=== PATIENT | female | born 1965 | race Caucasian/White ===

== ENCOUNTER 2017-01-11 08:03 | Emergency (ER) | payer OTHER ==
[2017-01-11] MEDS ORDERED: Ondansetron INJ* 2 MG/ML VIAL IV ONE (08:55)
[2017-01-11] MEDS ORDERED: Morphine INJ* 4 MG/ML 1 ML CARPUJECT IV ONE (08:55)
[2017-01-11] MEDS ORDERED: NS 0.9% 1000 ML* 2,000 ML IV ONE (08:55)
[2017-01-11] MEDS ORDERED: Ketorolac INJ* 30 MG/ML 1 ML VIAL IV PUSH ONE (08:59)
[2017-01-11 09:12] LABS: Hematocrit 42 % (35-47); Hemoglobin 14.3 g/dl (12.0-16.0); Mean Corpuscular HGB Conc 34 g/dl (31-36); Mean Corpuscular Hemoglobin 32 pg (27-31); Mean Corpuscular Volume 95 fL (80-97); Mean Platelet Volume 6 um3 (7.4-10.4); Red Blood Count 4.41 10^6/ul (4.0-5.4); Red Cell Distribution Width 14 % (10.5-15); White Blood Count 5.4 10^3/ul (3.5-10.8)
[2017-01-11 09:25] LABS: Albumin 4.1 g/dL (3.2-5.2); BUN/Creatinine Ratio 15.9 (8-20); C Reactive Protein 2.3 mg/L (< 5.00); Calcium 9.3 mg/dL (8.6-10.3); EGFR African American 115.4 (>60); EGFR Non-African American 89.7 (>60); Globulin 3.1 g/dL (2-4); Potassium 4.1 mmol/L (3.5-5.0); Total Bilirubin 0.4 mg/dL (0.2-1.0); Total Protein 7.2 g/dL (6.4-8.9); Troponin I 0.01 ng/mL (<0.04)
--- NOTE | 2017-01-11 10:08 | RAD ---
HISTORY: Right] side chest pain, shortness of breath COMPARISONS: February 01, 2015 VIEWS: 8: Frontal dual-energy and lateral views of the chest, frontal and oblique views of the right hemithorax. FINDINGS: CARDIOMEDIASTINAL SILHOUETTE: The cardiomediastinal silhouette is normal. GIULIANA: The giuliana are normal. PLEURA: The costophrenic angles are sharp. No pleural abnormalities are noted. There is no pneumothorax. LUNG PARENCHYMA: The lungs are clear. ABDOMEN: The upper abdomen is clear. There is no subphrenic gas. BONES AND SOFT TISSUES: No bone or soft tissue abnormalities are noted. There is no displaced rib fracture. OTHER: None. IMPRESSION: NO ACTIVE CARDIOPULMONARY DISEASE. NO DISPLACED RIB FRACTURE OR PNEUMOTHORAX.
--- NOTE | 2017-01-11 10:13 | RAD ---
INDICATION: Facial weakness. COMPARISON: There are no prior studies available for comparison. TECHNIQUE: Contiguous axial sections of the brain were obtained from the skull base to the vertex without contrast. FINDINGS: The ventricles, cisterns and sulci are within normal limits. There are small areas of decreased density in the subcortical and periventricular white matter suggestive of mild chronic small vessel ischemic changes. There is no evidence for hemorrhage. No significant focal osseous abnormality is seen. The visualized portion of the paranasal sinuses and mastoid air cells appear clear. Note on the lowest image there is a 8 mm nodule seen within the right parotid gland. IMPRESSION: 1. NO EVIDENCE FOR GROSS ACUTE INFARCT, MASS EFFECT OR HEMORRHAGE. 2. FINDINGS SUGGESTIVE OF MILD CHRONIC SMALL VESSEL ISCHEMIC CHANGES. 3. 8 MM NODULE WITHIN THE RIGHT PAROTID GLAND RECOMMEND A CT OR MRI OF THE NECK WITHOUT AND WITH CONTRAST FOR FURTHER EVALUATION.
[2017-01-11 10:20] LABS: Urine Bacteria Absent (Absent); Urine Bilirubin Negative (Negative); Urine Glucose Negative (Negative); Urine Nitrite Negative (Negative)
[2017-01-11 10:34] LABS: Erythrocyte Sed Rate 22 mm/Hr (0-30)
[2017-01-11] MEDS ORDERED: oxyCODONE/Acetamin 5/325 MG* TAB PO ONE (11:58)
[2017-01-11 12:25] VITALS: BP 166/86
--- NOTE | 2017-01-11 16:22 | ED ---
Yfn [place] Adam, scribed for Delfino Membreno MD on 01/11/17 at 0852 . Complex/Multi-Sys Presentation - HPI Summary HPI Summary: Pt is a 51 year old female presenting with right-sided rib pain and right facial droop. She has been having pain in her right ribs since she saw a chiropractor 9 days ago but the pain grew worse last night. Any movement and contact aggravates the pain. This morning the pt was at work when a regular customer noticed that her face appeared asymmetrical at approximately 07:00. She came to the ED because of concerns about possible CVA. She also c/o tingling in her right fingers earlier that is no longer present. She has also been experiencing intermittent palpitations when she is in bed. She denies MORGAN, visual loss, slurred speech, and weakness. PMHx of GERD and back problems. She is on medication for GERD and insomnia. Positive tobacco and alcohol use. No recent tick exposures. FMHx of HTN and LA. - History Of Current Complaint Chief Complaint: EDGeneral Time Seen by Provider: 01/11/17 08:39 Hx Obtained From: Patient Onset/Duration: Gradual Onset, Lasting Hours, Still Present Timing: Constant Severity Currently: Moderate Severity Initially: Moderate Location: Pain At: - Right ribs Aggravating Factor(s): Movement, inspiration, palpation Alleviating Factor(s): Nothing Associated Signs And Symptoms: Positive: Palpitations, Other - Right side facial droop, tingling in fingers of right hand. Negative: Weakness, Headache - Allergies/Home Medications Allergies/Adverse Reactions: Allergies Allergy/AdvReac Type Severity Reaction Status Date / Time Azithromycin [From Zithromax] AdvReac Intermediate stomach Verified 04/02/16 14: 09 cramps, diarhrea PMH/Surg Hx/FS Hx/Imm Hx Endocrine/Hematology History: Denies: Hx Diabetes, Hx Thyroid Disease Cardiovascular History: Reports: Hx Hypertension Denies: Hx Hypercholesterolemia, Hx Peripheral Vascular Disease, Other Cardiovascular Problems/Disorders Respiratory History: Reports: Hx Asthma - not formally dx w/ asthma, but uses inhaler, Hx Seasonal Allergies Denies: Hx Chronic Obstructive Pulmonary Disease (COPD) GI History: Reports: Hx Gastroesophageal Reflux Disease Denies: Hx Ulcer, Other GI Disorders Musculoskeletal History: Reports: Other Musculoskeletal History - BACK SPASMS FROM WORK INJURY Denies: Hx Arthritis, Hx Osteoporosis Sensory History: Denies: Hx Cataracts, Hx Contacts or Glasses, Hx Glaucoma, Hx Hearing Aid Opthamlomology History: Denies: Hx Cataracts, Hx Contacts or Glasses, Hx Glaucoma Neurological History: Denies: Hx Headaches, Hx Seizures, Hx Transient Ischemic Attacks (TIA) Psychiatric History: Reports: Other Psychiatric Issues/Disorders - Insomnia Denies: Hx Anxiety, Hx Depression - Surgical History Surgery Procedure, Year, and Place: c-sections x2, , gall bladder removed, , [facility] [place] [facility] [place] Hx Anesthesia Reactions: No Infectious Disease History: No Infectious Disease History: Denies: Hx Clostridium Difficile, Hx Hepatitis, Hx Human Immunodeficiency Virus (HIV), Hx of Known/Suspected MRSA, Hx Shingles, Hx Tuberculosis, History Other Infectious Disease, Traveled Outside the [place] in Last 30 Days - Family History Known Family History: Positive: Cardiac Disease - [place], Hypertension, Other - M - lung cancer metastasized to bone. F - natural causes. - Social History Occupation: Employed Full-time Lives: With Family - Alcohol Use: Weekly Alcohol Amount: 1-2 PER WEEK Hx Substance Use: No Substance Use Type: Reports: None Hx Tobacco Use: Yes - is in the process of quitting Smoking Status (MU): Light Every Day Tobacco Smoker Type: Cigarettes Amount Used/How Often: varies from day to day Length of Time of Smoking/Using Tobacco: approx 35 + yrs Have You Smoked in the Last Year: Yes Review of Systems Negative: Blurred Vision Positive: Palpitations Positive: Myalgia - Pain in right ribs Neurological: Other - Right side facial droop Positive: Numbness - Tingling in fingers of right hand. Negative: Headache, Weakness, Slurred Speech All Other Systems Reviewed And Are Negative: Yes Physical Exam - Summary Physical Exam Summary: The patient is well-nourished in no acute distress and in no acute pain. The skin is warm and dry and skin color reflects adequate perfusion. HEENT: The head is normocephalic and atraumatic. The pupils are equal and reactive. The conjunctivae are clear and without drainage. Nares are patent and without drainage. Mouth reveals moist mucous membranes and the throat is without erythema and exudate. The external ears are intact. Neck is supple with full range of motion and non-tender. There are no carotid bruits. There is no neck vein distension. Respiratory: Diminished breath sounds on the right. No crepitus, no subcutaneous air. Cardiovascular: Heart is regular rate and rhythm. There is no murmur or rub auscultated. There is no peripheral edema and pulses are symmetrical and equal. Abdomen: The abdomen is soft and non-tender. There are normal bowel sounds heard in all four quadrants and there is no organomegaly palpated. Musculoskeletal: Reproducible pain in lateral ribs on the right, more in the 4th rib through the 8th rib. Neurological: Right facial droop, some ptosis of the right eye. Nasolabial fold flattened. Patient is alert and oriented to person, place and time. The patient has symmetrical motor strength in all four extremities. Cranial nerves are grossly intact. Deep tendon reflexes are symmetrical and equal in all four extremities. No pronator drift. Negative finger to nose. Negative heel to watson. Negative Babinski. Visual acuities intact. Speech normal. Psychiatric: The patient has an appropriate affect and does not exhibit any anxiety or depression. Triage Information Reviewed: Yes Vital Signs On Initial Exam: Initial Vitals Temp Pulse Resp BP Pulse Ox 97.9 F 60 18 165/94 96 01/11/17 08:38 01/11/17 08:38 01/11/17 08:38 01/11/17 08:38 01/11/17 08:38 Vital Signs Reviewed: Yes Diagnostics - Vital Signs Vital Signs Temp Pulse Resp BP Pulse Ox 01/11/17 08:38 97.9 F 60 18 165/94 96 - Laboratory Lab Results: Lab Results 01/11/17 Range/Units 08:30 POC Glucose (mg/dL) 91 (74-106) mg/dL Result Diagrams: 01/11/17 08:31 01/11/17 08:31 Lab Statement: Any lab studies that have been ordered have been reviewed, and results considered in the medical decision making process. - Radiology RIBS Radiology Interpretation Completed By: Radiologist - IMPRESSION: NO ACTIVE CARDIOPULMONARY DISEASE. NO DISPLACED RIB FRACTURE OR PNEUMOTHORAX. CXR Radiology Interpretation Completed By: Radiologist - IMPRESSION: NO ACTIVE CARDIOPULMONARY DISEASE. NO DISPLACED RIB FRACTURE OR PNEUMOTHORAX. - CT BRAIN CT Interpretation Completed By: Radiologist - IMPRESSION: 1. NO EVIDENCE FOR GROSS ACUTE INFARCT, MASS EFFECT OR HEMORRHAGE. 2. FINDINGS SUGGESTIVE OF MILD CHRONIC SMALL VESSEL ISCHEMIC CHANGES. 3. 8 MM NODULE WITHIN THE RIGHT PAROTID GLAND RECOMMEND A CT OR MRI OF THE NECK WITHOUT AND WITH CONTRAST FOR FURTHER EVALUATION. - EKG 08:16 Cardiac Rate: NL - 62 BPM EKG Rhythm: Sinus Rhythm - Normal EKG Interpretation: Poor R wave progression - Additional Comments Diagnostic Additional Comments: Troponin I - 0.01 Complex Multi-Symp Course/Dx Course Of Treatment: 11:50 - Patient will be discharged with steroids and Percocet. - Diagnoses Differential Diagnoses/HQI/PQRI: Other - cva, vera's palsy, pneumothorax, rib fracture, intercostal myalgia Provider Diagnoses: Vera's palsy, Rib pain, CHEST WALL PAIN - Physician Notifications Discussed Care Of Patient With: Dr. Plascencia (Radiology). He made note of an incidental finding in the parotid gland but did not feel that this was causing the patient's symptoms. Discharge - Discharge Plan Condition: Stable Disposition: HOME Prescriptions: oxyCODONE/Acetamin 5/325 MG* [Percocet 5/325 TAB*] 1 tab PO Q6H PRN #20 tab MDD 4 PRN Reason: pain predniSONE TAB* [Deltasone TAB*] 60 mg PO DAILY #21 tab Patient Education Materials: Vera Palsy (ED), Chest Wall Pain (ED) Forms: *Work Release Referrals: Sandip Harvey MD [Primary Care Provider] - Additional Instructions: Follow up with Dr. Harvey. The documentation as recorded by the Yfn hill Adam accurately reflects the service I personally performed and the decisions made by , Delfino Membreno MD.
== END 2017-01-11 12:25 | disposition home or self-care (01) ==
LOC: ED 08:03
DX: R07.81 Pleurodynia (principal); G51.0 Bell's palsy; R07.89 Other chest pain; I10 Essential (primary) hypertension; J45.909 Unspecified asthma, uncomplicated; I73.9 Peripheral vascular disease, unspecified; G47.00 Insomnia, unspecified; F17.210 Nicotine dependence, cigarettes, uncomplicated
CPT/HCPCS: 36415; 70450; 71020; 80053; 81003; 81015; 83605; 84484; 85025; 85610; 85652; 86140; 86618; 93005; 96360; 96374; 96375; 99284; A9270-GY; J1885; J2270; J2405

== ENCOUNTER 2017-12-19 08:57 | Emergency (ER) | payer OTHER ==
[2017-12-19 09:16] VITALS: BP 153/88
--- NOTE | 2017-12-19 10:17 | UC ---
Shoulder Pain HPI - HPI Summary HPI Summary: Pt presents with anterior chest wall pain s/p fall x2 yesterday. She tells me that she slipped on the ice twice yesterday. One time landing on her buttocks and the other time bracing her fall backwards with her hands behind her back - felt a "pop" in her chest. She took tylenol and ibuprofen, but says this is not helping. Woke up this morning with continued chest wall pain. Denies numbness, tingling, palpitations, SOB, difficulty breathing, or hitting her head. - History of Current Complaint Chief Complaint: UCTrauma Stated Complaint: FELL CHEST INJURY Time Seen by Provider: 12/19/17 10:04 Hx Obtained From: Patient Onset/Duration: Sudden Onset Timing: Constant Severity Initially: Moderate Severity Currently: Moderate Pain Intensity: 7 Pain Scale Used: 0-10 Numeric Character: Sharp, Aching Aggravating Factor(s): Movement Alleviating Factor(s): Rest - Allergies/Home Medications Allergies/Adverse Reactions: Allergies Allergy/AdvReac Type Severity Reaction Status Date / Time Azithromycin [From Zithromax] AdvReac Intermediate stomach Verified 12/19/17 09: 16 cramps, diarhrea PMH/Surg Hx/FS Hx/Imm Hx - Surgical History Surgical History: Yes Surgery Procedure, Year, and Place: c-sections x2, , gall bladder [place] [facility] [place] [facility] [place] - Family History Known Family History: Positive: None - reviewed & noncontributory, Cardiac Disease - [place], Hypertension, Other - M - lung cancer metastasized to bone. F - natural causes. - Social History Lives: Alone Alcohol Use: Weekly Alcohol Amount: 1-2 PER WEEK Substance Use Type: None Smoking Status (MU): Light Every Day Tobacco Smoker Type: Cigarettes Amount Used/How Often: varies from day to day Length of Time of Smoking/Using Tobacco: approx 35 + yrs Have You Smoked in the Last Year: Yes Cessation Counseling: Counseled 3+Min - 10 Min Review of Systems Constitutional: Negative Skin: Negative Respiratory: Negative Cardiovascular: Negative Gastrointestinal: Negative Neurovascular: Negative Musculoskeletal: Other: - Chest wall pain Neurological: Negative Psychological: Negative All Other Systems Reviewed And Are Negative: Yes Physical Exam Triage Information Reviewed: Yes Appearance: Well-Appearing, No Pain Distress, Well-Nourished Vital Signs: Initial Vital Signs Temp 98 F 12/19/17 09:07 Pulse 76 12/19/17 09:07 Resp 18 12/19/17 09:07 BP 153/88 12/19/17 09:07 Pulse Ox 100 12/19/17 09:07 Vital Signs Reviewed: Yes Neck: Positive: Supple, No Lymphadenopathy, Other: - NTTP. FROM. Respiratory: Positive: Lungs clear, Normal breath sounds, No respiratory distress, No accessory muscle use Cardiovascular: Positive: RRR, No Murmur, Pulses Normal Musculoskeletal: Positive: Strength Intact - B/L UEs, ROM Intact - B/L UEs, No Edema - B/L UEs, Other: - TTP over anterior chest wall along both sides of the sternum just above each breast. No ecchymosis or erythema. Neurological: Positive: Alert, Other: - CN II-XII grossly intact. Psychological: Positive: Age Appropriate Behavior Skin: Negative: rashes, significant lesion(s) Shoulder Course/Dx - Course Course Of Treatment: Ribs with chest XR: IMPRESSION: NO DISPLACED RIB FRACTURE OR PNEUMOTHORAX. Suspect chest wall muscle strain. Rest, mobic, and heat to the area. - Differential Dx/Diagnosis Provider Diagnoses: Chest wall muscle strain Discharge - Discharge Plan Condition: Stable Disposition: HOME Prescriptions: Meloxicam [Mobic] 7.5 mg PO BID PRN #20 tab PRN Reason: Pain Patient Education Materials: Chest Wall Pain (ED) Referrals: Sandip Harvey MD [Primary Care Provider] - Additional Instructions: If you develop a fever, shortness of breath, chest pain, new or worsening symptoms - please call your PCP or go to the ED. Your blood pressure was high at todays visit. Please see your primary provider within 4 weeks for recheck and re-evaluation.
--- NOTE | 2017-12-19 10:50 | RAD ---
HISTORY: Anterior chest wall pain, status post fall COMPARISONS: January 11, 2017 VIEWS: 9, Frontal and oblique views of the left and right hemithorax. FINDINGS: There is no displaced rib fracture or pneumothorax. The visualized lungs are clear. IMPRESSION: NO DISPLACED RIB FRACTURE OR PNEUMOTHORAX.
== END 2017-12-19 11:08 | disposition home or self-care (01) ==
LOC: UCEAST 08:57
DX: S29.011A Strain of muscle and tendon of front wall of thorax, initial encounter (principal); F17.210 Nicotine dependence, cigarettes, uncomplicated; W00.0XXA Fall on same level due to ice and snow, initial encounter; Y92.9 Unspecified place or not applicable
CPT/HCPCS: 71111; 99212; G0463

== ENCOUNTER 2018-03-27 17:44 | Emergency (ER) | payer OTHER ==
[2018-03-27] MEDS ORDERED: Metoclopramide IV* 5 MG/ML 2 ML VIAL IV SLOW PU ONE (20:15)
[2018-03-27] MEDS ORDERED: diPHENhydraMINE IV* 50 MG/ML 1 ml VIAL (BENADRYL) SLOW PUSH ONE (20:15)
[2018-03-27] MEDS ORDERED: Ketorolac INJ* 30 MG/ML 1 ML VIAL IV PUSH ONE (20:15)
[2018-03-27] MEDS ORDERED: NS 0.9% 1000 ML* 1,000 ML IV ONE (20:16)
--- NOTE | 2018-03-27 20:52 | RAD ---
HISTORY: Headache, nausea, lightheadedness, vomiting COMPARISONS: January 11, 2017 TECHNIQUE: Multiple contiguous axial CT scans were obtained of the head without intravenous contrast. FINDINGS: HEMORRHAGE/INFARCT: There is no hemorrhage or acute infarct. MASSES/SHIFT: There is no mass or shift. EXTRA-AXIAL SPACES: There are no extra-axial fluid collections. SULCI AND VENTRICLES: The sulci and ventricles are normal in size and position for the patient's stated age. CEREBRUM: There is mild hypoattenuation of the periventricular and subcortical white matter. BRAINSTEM: There are no focal parenchymal abnormalities. CEREBELLUM: There are no focal parenchymal abnormalities. VESSELS: The vessels are grossly normal. PARANASAL SINUSES: The paranasal sinuses are clear. ORBITS: The orbits are unremarkable. BONES AND SOFT TISSUE: No bone or soft tissue abnormalities are noted. The right parotid nodule noted on the previous CT examination is not included within the [id number] the current examination. OTHER: None IMPRESSION: NO ACUTE INTRACRANIAL PATHOLOGY.
[2018-03-27 21:14] LABS: ABS Basophils 0.1 10^3/ul (0-0.2); ABS Eosinophils 0.1 10^3/ul (0-0.6); ABS Lymphocytes 2.2 10^3/ul (1.0-4.8); ABS Monocytes 0.4 10^3/ul (0-0.8); ABS Nucleated RBC 0 10^3/ul; Eosinophil % 1.5 % (0-6); Hematocrit 38 % (35-47); Hemoglobin 13.4 g/dl (12.0-16.0); Lymphocyte % 38.9 % (25-47); Mean Corpuscular HGB Conc 36 g/dl (31-36); Mean Corpuscular Hemoglobin 34 pg (27-31); Mean Corpuscular Volume 96 fL (80-97); Mean Platelet Volume 6.2 um3 (7.4-10.4); Nucleated Red Blood Cells % 0.1; Platelet Count 370 10^3/ul (150-450); Red Blood Count 3.93 10^6/ul (4.0-5.4); Red Cell Distribution Width 14 % (10.5-15); White Blood Count 5.7 10^3/ul (3.5-10.8)
[2018-03-27 21:27] LABS: INR 0.91 (0.77-1.02)
[2018-03-27 21:34] LABS: EGFR Non-African American 79.9 (>60)
[2018-03-28 01:36] VITALS: BP 122/74
--- NOTE | 2018-03-28 03:41 | ED ---
Santosh England Thomas, scribed for Iman Reina MD on 03/27/18 at 2031 . Headache - HPI Summary HPI Summary: The patient is a 52 year old female complaining of a headache for the last month. The patient was put on Lisinopril 10 mg two weeks ago by her primary care physician, and this improved her headache somewhat. Today, the patients blood pressure was measured 160/94 at her doctors office, so the Lisinopril was raised to 20 mg. In the emergency department, the patient also complains of nausea. She denies photophobia and lightheadedness. - History Of Current Complaint Chief Complaint: EDGeneral Stated Complaint: HEADACHE/ILLNESS Time Seen by Provider: 03/27/18 19:18 Hx Obtained From: Patient Onset/Duration: Started weeks ago, Still Present Currently Pain Is: Moderate Aggravating Factor: Nothing Allevating Factors: Medication - Lisinopril Associated Signs And Symptoms: Nausea, Other (Noted In Comments) - NEGATIVE: photophobia, lightheadedness - Allergies/Home Medications Allergies/Adverse Reactions: Allergies Allergy/AdvReac Type Severity Reaction Status Date / Time azithromycin AdvReac Intermediate Nausea And Verified 03/27/18 17:53 Vomiting Home Medications: Home Medications Diclofenac Sodium EC TAB* [Voltaren EC TAB*] 75 mg PO BID PRN 03/27/18 [History Confirmed 03/27/18] Esomeprazole(NF) [Nexium(NF)] 40 mg PO DAILY 03/27/18 [History Confirmed ] Lisinopril TAB* [Prinivil TAB*] 20 mg PO DAILY 03/27/18 [History Confirmed 03/27] Potassium 99 mg PO DAILY 03/27/18 [History Confirmed 03/27/18] tiZANidine TAB* [Zanaflex TAB*] 4 mg PO Q6HR 03/27/18 [History Confirmed ] traZODone TAB* [Desyrel TAB*] 100 mg PO BEDTIME 03/27/18 [History Confirmed 02/09] PMH/Surg Hx/FS Hx/Imm Hx Endocrine/Hematology History: Denies: Hx Diabetes, Hx Thyroid Disease Cardiovascular History: Reports: Hx Hypertension Denies: Hx Hypercholesterolemia, Hx Peripheral Vascular Disease, Other Cardiovascular Problems/Disorders Respiratory History: Reports: Hx Asthma - not formally dx w/ asthma, but uses inhaler, Hx Seasonal Allergies Denies: Hx Chronic Obstructive Pulmonary Disease (COPD) GI History: Reports: Hx Gastroesophageal Reflux Disease Denies: Hx Ulcer, Other GI Disorders Musculoskeletal History: Reports: Other Musculoskeletal History - BACK SPASMS FROM WORK INJURY Denies: Hx Arthritis, Hx Osteoporosis Sensory History: Denies: Hx Cataracts, Hx Contacts or Glasses, Hx Glaucoma, Hx Hearing Aid Opthamlomology History: Denies: Hx Cataracts, Hx Contacts or Glasses, Hx Glaucoma Neurological History: Denies: Hx Headaches, Hx Seizures, Hx Transient Ischemic Attacks (TIA) Psychiatric History: Reports: Other Psychiatric Issues/Disorders - Insomnia Denies: Hx Anxiety, Hx Depression - Surgical History Surgery Procedure, Year, and Place: c-sections x2, , gall bladder removed, , [facility] [place] [facility] [place] Hx Anesthesia Reactions: No Infectious Disease History: No Infectious Disease History: Denies: Hx Clostridium Difficile, Hx Hepatitis, Hx Human Immunodeficiency Virus (HIV), Hx of Known/Suspected MRSA, Hx Shingles, Hx Tuberculosis, History Other Infectious Disease, Traveled Outside the [place] in Last 30 Days - Family History Known Family History: Positive: Cardiac Disease - [place], Hypertension, Other - M - lung cancer metastasized to bone. F - natural causes. - Social History Alcohol Use: Weekly Alcohol Amount: 1-2 PER WEEK Hx Substance Use: No Substance Use Type: Reports: None Hx Tobacco Use: Yes - is in the process of quitting Smoking Status (MU): Light Every Day Tobacco Smoker Type: Cigarettes Amount Used/How Often: varies from day to day Length of Time of Smoking/Using Tobacco: approx 35 + yrs Have You Smoked in the Last Year: Yes Review of Systems Negative: Fever Negative: Photophobia Positive: Nausea Neurological: Other - NEGATIVE: lightheadedness Positive: Headache All Other Systems Reviewed And Are Negative: Yes Physical Exam - Summary Physical Exam Summary: VITAL SIGNS: Reviewed. GENERAL: Patient is a well-developed and nourished female who is lying comfortable in the stretcher. Patient is not in any acute respiratory distress. HEAD AND FACE: No signs of trauma. No ecchymosis, hematomas or skull depressions. No sinus tenderness. EYES: PERRLA, EOMI x 2, No injected conjunctiva, no nystagmus. EARS: Hearing grossly intact. Ear canals and tympanic membranes are within normal limits. MOUTH: Oropharynx within normal limits. NECK: Supple, trachea is midline, no adenopathy, no JVD, no carotid bruit, no c- spine tenderness, neck with full ROM. CHEST: Symmetric, no tenderness at palpation LUNGS: Clear to auscultation bilaterally. No wheezing or crackles. CVS: Regular rate and rhythm, S1 and S2 present, no murmurs or gallops appreciated. ABDOMEN: Soft, non-tender. No signs of distention. No rebound no guarding, and no masses palpated. Bowel sounds are normal. EXTREMITIES: FROM in all major joints, no edema, no cyanosis or clubbing. NEURO: Alert and oriented x 3. No acute neurological deficits. Speech is normal and follows commands. SKIN: Dry and warm Triage Information Reviewed: Yes Vital Signs On Initial Exam: Initial Vitals Temp Pulse Resp BP Pulse Ox 97.5 F 104 18 125/73 91 03/27/18 17:49 03/27/18 17:49 03/27/18 17:49 03/27/18 17:49 03/27/18 17:49 Vital Signs Reviewed: Yes Diagnostics - Vital Signs Vital Signs Temp Pulse Resp BP Pulse Ox 03/27/18 18:52 85 112/75 92 03/27/18 17:49 97.5 F 104 18 125/73 91 - Laboratory Result Diagrams: 03/27/18 21:05 03/27/18 21:05 Lab Statement: Any lab studies that have been ordered have been reviewed, and results considered in the medical decision making process. - CT CT Brain CT Interpretation: No Acute Changes - Impression: "No acute intracranial patholology." Dr. Reina has reviewed this report. CT Interpretation Completed By: Radiologist Re-Evaluation - Re-Evaluation First Eval Re-Evaluation Time: 00:02 Change: Improved Comment: She is feeling better. Headache Course/Dx - Course Assessment/Plan: The patient is a 52 year old female complaining of a headache for the last month. In the ED course, the patient was given Benadryl, Toradol, Reglan, and IV fluids. Bloodwork was obtained. CT Brain shows no acute intracranial pathology. On re-evaluation, the patient is feeling better. The patient is diagnosed with headache. The patient will be discharged home to follow up with primary care. - Diagnoses Provider Diagnoses: Headache Discharge - Sign-Out/Discharge Documenting (check all that apply): Discharge/Admit/Transfer - Discharge Plan Condition: Stable Disposition: HOME Patient Education Materials: General Headache (ED) Referrals: Sandip Harvey MD [Primary Care Provider] - 3 Days Additional Instructions: Follow up with your primary care physician in three days. Return to the emergency department for any new or worsening symptoms. The documentation as recorded by the Santosh hill Thomas accurately reflects the service I personally performed and the decisions made by Latosha rogers Abdul, MD.
== END 2018-03-28 01:20 | disposition home or self-care (01) ==
LOC: ED 17:44
DX: R51 Headache (principal); R11.0 Nausea; Z86.79 Personal history of other diseases of the circulatory system; F17.210 Nicotine dependence, cigarettes, uncomplicated
CPT/HCPCS: 36415; 70450; 80053; 85025; 85610; 85730; 96361; 96374; 96375; 99284; J1200; J1885; J2765

== ENCOUNTER 2018-05-06 07:37 | Emergency (ER) | payer OTHER ==
[2018-05-06 08:20] LABS: ABS Basophils 0.1 10^3/ul (0-0.2); ABS Eosinophils 0.1 10^3/ul (0-0.6); ABS Lymphocytes 1.4 10^3/ul (1.0-4.8); ABS Monocytes 0.3 10^3/ul (0-0.8); ABS Neutrophils 3.9 10^3/ul (1.5-7.7); ABS Nucleated RBC 0 10^3/ul; Eosinophil % 1.1 % (0-6); Hematocrit 44 % (35-47); Hemoglobin 15.1 g/dl (12.0-16.0); Lymphocyte % 24.6 % (25-47); Mean Corpuscular HGB Conc 34 g/dl (31-36); Mean Corpuscular Hemoglobin 33 pg (27-31); Mean Corpuscular Volume 97 fL (80-97); Mean Platelet Volume 6.3 um3 (7.4-10.4); Nucleated Red Blood Cells % 0.1; Platelet Count 383 10^3/ul (150-450); Red Blood Count 4.54 10^6/ul (4.00-5.40); Red Cell Distribution Width 13 % (10.5-15); White Blood Count 5.7 10^3/ul (3.5-10.8)
--- NOTE | 2018-05-06 08:37 | RAD ---
HISTORY: Numbness upper extremity COMPARISONS: March 27, 2013 TECHNIQUE: Multiple contiguous axial CT scans were obtained of the head without intravenous contrast. FINDINGS: HEMORRHAGE/INFARCT: There is no hemorrhage or acute infarct. MASSES/SHIFT: There is no mass or shift. EXTRA-AXIAL SPACES: There are no extra-axial fluid collections. SULCI AND VENTRICLES: The sulci and ventricles are normal in size and position for the patient's stated age. CEREBRUM: There is mild, patchy hypoattenuation of the periventricular and subcortical white matter. This is stable.. BRAINSTEM: There are no focal parenchymal abnormalities. CEREBELLUM: There are no focal parenchymal abnormalities. VESSELS: The vessels are grossly normal. PARANASAL SINUSES: The paranasal sinuses are clear. ORBITS: The orbits are unremarkable. BONES AND SOFT TISSUE: No bone or soft tissue abnormalities are noted. OTHER: None IMPRESSION: NO ACUTE INTRACRANIAL PATHOLOGY.
[2018-05-06 08:40] LABS: EGFR Non-African American 82.4 (>60)
--- NOTE | 2018-05-06 09:01 | RAD ---
HISTORY: cp, chest pain COMPARISONS: August 11, 2017 VIEWS: 1: frontal portable view of the chest at 8:55 PM FINDINGS: LINES AND TUBES: None. CARDIOMEDIASTINAL SILHOUETTE: The cardiomediastinal silhouette is normal for portable technique. PLEURA: The costophrenic angles are sharp. No pleural abnormalities are noted. LUNG PARENCHYMA: The lungs are clear. ABDOMEN: The upper abdomen is clear. There is no subphrenic gas. BONES AND SOFT TISSUES: No bone or soft tissue abnormalities are noted. IMPRESSION: NO ACTIVE CARDIOPULMONARY DISEASE.
[2018-05-06] MEDS ORDERED: Ketorolac INJ* 30 MG/ML 1 ML VIAL IV PUSH ONE (11:12)
[2018-05-06 11:23] VITALS: BP 145/85
--- NOTE | 2018-05-06 14:32 | ED ---
[place] Angela, scribed for Bc Mills MD on 05/06/18 at 0756 . Complex/Multi-Sys Presentation - HPI Summary HPI Summary: This pt is a 52 y/o female presenting to [facility] c/o tingling, numbness, nausea, and chest pain today. Pt reports her tinging and numbness in arms began at 03: 30 this morning. She notes she felt better and went to work. At work she states she began to feel numb from her head down tot her knees and felt "woozy." On her way to the ED she developed chest heaviness and nausea. Pt reports she has recently changed her antihypertensive medication to Losartan. PMHx includes Vera's Palsy. - History Of Current Complaint Hx Obtained From: Patient Onset/Duration: Lasting Hours, Still Present Timing: Hours Severity Currently: Moderate Location: Pain At: - chest Aggravating Factor(s): nothing Alleviating Factor(s): nothing Associated Signs And Symptoms: Positive: Chest Pain, Nausea, Other - POS: tingling and numbness. Negative: SOB, Fever - Allergies/Home Medications Allergies/Adverse Reactions: Allergies Allergy/AdvReac Type Severity Reaction Status Date / Time azithromycin AdvReac Intermediate Nausea And Verified 05/06/18 07:48 Vomiting Home Medications: Home Medications Cetirizine* [ZyrTEC 10 MG TAB*] 10 mg PO DAILY 05/06/18 [History Confirmed 05/06] Valsartan/HCTZ 160/12.5(NF) [Diovan HCT 160/12.5 (NF)] 1 tab PO DAILY 05/06/18 [ History Confirmed 05/06/18] PMH/Surg Hx/FS Hx/Imm Hx Endocrine/Hematology History: Denies: Hx Diabetes, Hx Thyroid Disease Cardiovascular History: Reports: Hx Hypertension Denies: Hx Hypercholesterolemia, Hx Peripheral Vascular Disease, Other Cardiovascular Problems/Disorders Respiratory History: Reports: Hx Asthma - not formally dx w/ asthma, but uses inhaler, Hx Seasonal Allergies Denies: Hx Chronic Obstructive Pulmonary Disease (COPD) GI History: Reports: Hx Gastroesophageal Reflux Disease Denies: Hx Ulcer, Other GI Disorders Musculoskeletal History: Reports: Other Musculoskeletal History - BACK SPASMS FROM WORK INJURY Denies: Hx Arthritis, Hx Osteoporosis Sensory History: Denies: Hx Cataracts, Hx Contacts or Glasses, Hx Glaucoma, Hx Hearing Aid Opthamlomology History: Denies: Hx Cataracts, Hx Contacts or Glasses, Hx Glaucoma Neurological History: Denies: Hx Headaches, Hx Seizures, Hx Transient Ischemic Attacks (TIA) Psychiatric History: Reports: Other Psychiatric Issues/Disorders - Insomnia Denies: Hx Anxiety, Hx Depression - Surgical History Surgery Procedure, Year, and Place: c-sections x2, , gall bladder removed, , [facility] hernia repair, 2011, [facility] x2 Hx Anesthesia Reactions: No - Immunization History Immunizations Up to Date: Yes Infectious Disease History: No Infectious Disease History: Denies: Hx Clostridium Difficile, Hx Hepatitis, Hx Human Immunodeficiency Virus (HIV), Hx of Known/Suspected MRSA, Hx Shingles, Hx Tuberculosis, History Other Infectious Disease, Traveled Outside the [place] in Last 30 Days - Family History Known Family History: Positive: Cardiac Disease - [place], Hypertension, Other - M - lung cancer metastasized to bone. F - natural causes. - Social History Alcohol Use: Weekly Alcohol Amount: 1-2 PER WEEK Hx Substance Use: No Substance Use Type: Reports: None Hx Tobacco Use: Yes - is in the process of quitting Smoking Status (MU): Light Every Day Tobacco Smoker Type: Cigarettes Amount Used/How Often: varies from day to day Length of Time of Smoking/Using Tobacco: approx 35 + yrs Have You Smoked in the Last Year: Yes Review of Systems Negative: Fever, Chills Positive: Chest Pain Negative: Shortness Of Breath Positive: Nausea. Negative: Vomiting Positive: Paresthesia, Numbness All Other Systems Reviewed And Are Negative: Yes Physical Exam - Summary Physical Exam Summary: VITAL SIGNS: Reviewed. GENERAL: Patient is a well-developed and nourished female who is lying comfortable in the stretcher. Patient is not in any acute respiratory distress. HEAD AND FACE: No signs of trauma. No ecchymosis, hematomas or skull depressions. No sinus tenderness. EYES: PERRLA, EOMI x 2, No injected conjunctiva, no nystagmus. No photophobia. EARS: Hearing grossly intact. Ear canals and tympanic membranes are within normal limits. MOUTH: Oropharynx within normal limits. NECK: Supple, trachea is midline, no adenopathy, no JVD, no carotid bruit, no c- spine tenderness, neck with full ROM. No meningeal signs, no Kernig's or brudzinskis signs. CHEST: Symmetric, no tenderness at palpation LUNGS: Clear to auscultation bilaterally. No wheezing or crackles. CVS: Regular rate and rhythm, S1 and S2 present, no murmurs or gallops appreciated. ABDOMEN: Soft, non-tender. No signs of distention. No rebound no guarding, and no masses palpated. Bowel sounds are normal. EXTREMITIES: FROM in all major joints, no edema, no cyanosis or clubbing. NEURO: Alert and oriented x 3. No acute neurological deficits. Speech is normal and follows commands. SKIN: Dry and warm GCS: 15 Triage Information Reviewed: Yes Vital Signs On Initial Exam: Initial Vitals Temp Pulse Resp BP Pulse Ox 97.9 F 80 18 176/119 98 05/06/18 07:39 05/06/18 07:39 05/06/18 07:39 05/06/18 07:39 05/06/18 07:39 Vital Signs Reviewed: Yes Diagnostics - Vital Signs Vital Signs Temp Pulse Resp BP Pulse Ox 05/06/18 07:39 97.9 F 80 18 176/119 98 - Laboratory Result Diagrams: 05/06/18 08:08 05/06/18 08:08 Lab Statement: Any lab studies that have been ordered have been reviewed, and results considered in the medical decision making process. - Radiology Chest XR Xray Interpretation: No Acute Changes - IMPRESSION: No active cardiopulmonary disease. Dr. Mills has reviewed this radiology report. Radiology Interpretation Completed By: Radiologist - CT Brain CT CT Interpretation: No Acute Changes - IMPRESSION: No acute intracranial pathology. Dr. Mills has reviewed this radiology report. CT Interpretation Completed By: Radiologist - EKG 07:45 Cardiac Rate: NL - at 72 bpm EKG Rhythm: Sinus Rhythm EKG Interpretation: No ST elevations. Q wave in III. Complex Multi-Symp Course/Dx Assessment/Plan: Pt is a 52 y/o female, with hx of Vera's Palsy, who presents with tingling, numbness, nausea, and chest pain today. Test results without any significant abnormalities except for magnesium of 1.5, for which the pt will be given a prescription for magnesium PO. EKG shows normal sinus rhythm without ST elevations. Chest XR: No active cardiopulmonary disease. Brain CT: No acute intracranial pathology. Two troponins, 4 hours apart, are both 0.00. Therefore since the pt is asymptomatic, she will be discharged home with follow up from her PCP. She will be picking up the prescription for magnesium PO from the pharmacy. I discussed all the findings and test results with the patient. All questions were answered to patient satisfaction. There were no further complaints or concerns. She is instructed to return to the ED for any worsening or new symptoms. Pt is hemodynamically stable, alert and oriented x3. - Diagnoses Provider Diagnoses: Paresthesia, Atypical chest pain, Hypomagnesemia Discharge - Sign-Out/Discharge Documenting (check all that apply): Discharge/Admit/Transfer - Discharge - Discharge Plan Condition: Stable Disposition: HOME Prescriptions: Magnesium Oxide TAB* [MagOx 400 TAB*] 800 mg PO DAILY #10 tab Patient Education Materials: Chest Pain (ED), Paresthesia (ED) Referrals: Sandip Harvey MD [Primary Care Provider] - 3 Days Additional Instructions: Please follow up with your primary care provider. RETURN TO THE ED FOR ANY NEW OR WORSENING SYMPTOMS. The documentation as recorded by the [place] Angela accurately reflects the service I personally performed and the decisions made by me, Bc Mills MD.
== END 2018-05-06 11:24 | disposition home or self-care (01) ==
LOC: ED 07:37
DX: R07.9 Chest pain, unspecified (principal); R11.0 Nausea; R20.2 Paresthesia of skin; R07.89 Other chest pain; E83.42 Hypomagnesemia
CPT/HCPCS: 36415; 70450; 71045; 80053; 82550; 82553; 83605; 83735; 83880; 84443; 84484; 85025; 93005; 96374; 99282

== ENCOUNTER 2018-06-12 15:07 | Emergency (ER) | payer OTHER ==
[2018-06-12 15:32] VITALS: BP 150/88
--- NOTE | 2018-06-12 16:15 | UC ---
Abdominal Pain Female HPI - HPI Summary HPI Summary: This is liz Alexis documenting for attending Digna Steele MD. This patient is a 52 year old F presenting to [facility] with a chief complaint of stomach cramps that began 06/09/2018. The patient rates the pain 8/10 in severity. Symptoms aggravated by nothing. Symptoms were not alleviated by a muscle relaxant and Ondansetron. Patient reports fever, nausea, vomiting (began 2 days ago), dry heaving, headache, and diarrhea. Pt states feels warm, no documented fever. No rash. No dysuria, hematuria. No vaginal discharge, itching , odor. Patient denies sick contacts at home. She reports dysuria that occurred 3 weeks ago, and resolved. Pt is s/p sharath. No concern for Medications reviewed this visit. - History of Current Complaint Chief Complaint: UCGI Stated Complaint: VOMITTING,STOMACH CRAMPS Time Seen by Provider: 06/12/18 15:50 Hx Obtained From: Patient Hx Last Menstrual Period: NA ?: No Onset/Duration: Sudden Onset, Lasting Days, Still Present Timing: Constant Severity Initially: Severe Severity Currently: Severe Pain Intensity: 8 Pain Scale Used: 0-10 Numeric Location: Diffuse Radiates: No Character: Cramping Aggravating Factor(s): Nothing Alleviating Factor(s): Nothing Associated Signs and Symptoms: Positive: Other: - Positive fever, nausea, vomiting (began 2 days ago), dry heaving, headache, and diarrhea Allergies/Adverse Reactions: Allergies Allergy/AdvReac Type Severity Reaction Status Date / Time azithromycin AdvReac Intermediate Nausea And Verified 06/12/18 15:32 Vomiting Home Medications: Home Medications Ondansetron ODT TAB* [Zofran 4 MG Odt TAB*] 4 mg PO Q6H PRN 06/12/18 [History Confirmed 06/12/18] Zolpidem TAB* [Ambien TAB*] 5 mg PO BEDTIME PRN 06/12/18 [History Confirmed ] PMH/Surg Hx/FS Hx/Imm Hx Previously Healthy: No Cardiovascular History: Hypertension Respiratory History: Asthma - Surgical History Surgical History: Yes Surgery Procedure, Year, and Place: c-sections x2, , gall bladder removed, , [facility] hernia repair, 2011, [facility] x2 - Family History Known Family History: Positive: Cardiac Disease - [place], Hypertension, Other - M - lung cancer metastasized to bone. F - natural causes. - Social History Occupation: Employed Full-time Lives: With Family Alcohol Use: Weekly Alcohol Amount: 1-2 PER WEEK Substance Use Type: None Smoking Status (MU): Light Every Day Tobacco Smoker Type: Cigarettes Amount Used/How Often: varies from day to day Length of Time of Smoking/Using Tobacco: approx 35 + yrs Have You Smoked in the Last Year: Yes Review of Systems Constitutional: Fever Gastrointestinal: Abdominal Pain, Vomiting, Diarrhea, Nausea, Other - Positive dry heaving Neurological: Headache All Other Systems Reviewed And Are Negative: Yes Physical Exam - Summary Physical Exam Summary: Vital Signs Reviewed: Yes A+Ox3, mild discomfort, tired appearing. Eyes: Conjunctiva Clear, ANNIE. EOM intact and full ENT: Hearing grossly normal TM x 2 clear, mmoist, uvula midline, no exudate, no erythema Neck: Positive: Supple Respiratory: Positive: No respiratory distress, No accessory muscle use + CTA throughout no w/r Cardiovascular: RRR nl s1, s2 no m/r CBT <2 sec abd soft + BS + ttp RLQ>LLQ no guarding no rebound soft Musculoskeletal Exam: VELASQUEZ x 4 without difficulty Strength Intact, ROM Intact Neurological: Positive: Alert, + sensation throughout Psychological: Positive: Normal Response To Family Skin: Positive: no rash, no ecchymosis Triage Information Reviewed: Yes Vital Signs: Initial Vital Signs Temp 98.0 F 06/12/18 15:28 Pulse 66 06/12/18 15:28 Resp 20 06/12/18 15:28 BP 150/88 06/12/18 15:28 Pulse Ox 99 06/12/18 15:28 Abd Pain Female Course/Dx - Course Course Of Treatment: Patient presents to urgent care complaining of 3-4 days progressive diffuse abdominal crampy pain. Patient states initially had some nausea vomiting. Patient continued with dry heaving. Patient states she's been unable to keep anything down. Patient has tried some Zofran ODT without improvement. Patient also had some diarrhea initially but none since. On exam vital signs are stable. Patient noted to have lower abdominal discomfort right greater than left lower quadrant. Patient still has her appendix. Discussed with patient the differential including gastroenteritis, colitis, appendicitis, and remote possibility of ovarian cyst unlikely given the clinical setting. Recommend patient to the emergency department for further evaluation and treatment. Patient comfortable in agreement with this plan. Patient aware that treatment plan and emergency department will be directed by the provider that evaluated her there. Patient's is here with him drive for the emergency department. Patient advised to pullover, changes. Patient comfortable in agreement with plan. Pt's BP elevated - pt with h/o same and in pain. PCP f/u - Differential Dx/Diagnosis Provider Diagnoses: abdominal pain, vomiting, diarrhea Discharge - Sign-Out/Discharge Documenting (check all that apply): Patient Departure - Discharge Plan Condition: Stable Disposition: HOME-RECOMMEND TO ED Patient Education Materials: Acute Abdominal Pain (ED) Referrals: Sandip Harvey MD [Primary Care Provider] - Additional Instructions: The doctor that evaluated you today thinks that you need additional testing that can be completed the emergency department. It is recommended that you go directly to emergency department for further evaluation. This evaluation included blood work or imaging. This testing will be directed and decided by the provider that evaluats you at the emergency department. If pain becomes worse, you feel lightheaded, you have uncontrolled vomiting, or you have any other concerns while you are being driven to emergency department as recommended to pullover and contact 911. - Billing Disposition and Condition Condition: STABLE Disposition: Home-Recommend to ED
[2018-06-12] MEDS ORDERED: Ondansetron ODT TAB* 4 MG PO ONE (16:16)
== END 2018-06-12 16:29 | disposition home health service (06) ==
LOC: UCEAST 15:07
DX: R10.9 Unspecified abdominal pain (principal); R11.2 Nausea with vomiting, unspecified; R19.7 Diarrhea, unspecified; R50.9 Fever, unspecified; R51 Headache; F17.210 Nicotine dependence, cigarettes, uncomplicated; I10 Essential (primary) hypertension; J45.909 Unspecified asthma, uncomplicated; Z88.1 Allergy status to other antibiotic agents
CPT/HCPCS: 99212; A9270-GY; G0463

== ENCOUNTER 2018-06-12 16:51 | Emergency (ER) | payer OTHER ==
[2018-06-12 19:38] VITALS: BP 153/74
[2018-06-12 21:36] LABS: Urine Appearance Clear; Urine Blood 1+ (Negative); Urine Color Yellow; Urine Ketones Negative (Negative); Urine Protein Negative (Negative); Urine Red Blood Cell Absent (Absent); Urine Specific Gravity 1.013 (1.010-1.030); Urine Urobilinogen Negative (Negative); Urine White Blood Cell Absent (Absent)
--- NOTE | 2018-06-15 13:55 | ED ---
Progress - Progress Note Progress Note: Patient's preliminary urine culture reveals greater than 100,000 Klebsiella pneumoniae. She reported to urgent care with lower ab cramping and h/o dysuria. No anbx rx'd - pending final results. Discharge - Sign-Out/Discharge Documenting (check all that apply): Post-Discharge Follow Up - Discharge Plan Disposition: LEFT WITHOUT BEING SEEN Referrals: Sandip Harvey MD [Primary Care Provider] - - Billing Disposition and Condition Disposition: Left Without Being Seen
--- NOTE | 2018-06-16 16:23 | ED ---
Progress - Progress Note Progress Note: Patient's preliminary urine culture reveals greater than 100,000 Klebsiella pneumoniae. She reported to urgent care with lower ab cramping and h/o dysuria. No anbx rx'd - pending final results. UPDATE: Patient's final urine culture is pansensitive except for a resistance to ampicillin and an indeterminant outcome with nitrofurantoin. Spoke with patient who admits she left without being seen while here on June 12 due to a long wait time and was inpatient however she went to [facility] on 06/13 and was diagnosed with colitis as well as UTI. She was placed on Cipro and Flagyl. Cipro is an effective antibiotic against her UTI organism according to sens's. She reports she's feeling much better and has follow-up care to her PCP. No further action at this time. Discharge - Sign-Out/Discharge Documenting (check all that apply): Post-Discharge Follow Up - Discharge Plan Disposition: LEFT WITHOUT BEING SEEN Referrals: Sandip Harvey MD [Primary Care Provider] - - Billing Disposition and Condition Disposition: Left Without Being Seen
== END 2018-06-12 22:20 | disposition left against medical advice (07) ==
LOC: ED 16:51
DX: R10.9 Unspecified abdominal pain (principal); Z53.21 Procedure and treatment not carried out due to patient leaving prior to being seen by health care provider
CPT/HCPCS: 81003; 81015; 87077; 87086; 87186; 99281

== ENCOUNTER 2018-09-06 11:05 | Emergency (ER) | payer OTHER ==
[2018-09-06] MEDS ORDERED: Morphine INJ* 2 MG/ML 1 ML SYRINGE (TWO MG - NEW SYRINGE VERSION) IV ONE (12:52)
[2018-09-06] MEDS ORDERED: NS 0.9% 1000 ML* 1,000 ML IV ONE (12:52)
[2018-09-06] MEDS ORDERED: Ondansetron ODT TAB* 4 MG PO ONE ×2 (12:52→14:37)
--- NOTE | 2018-09-06 13:00 | ED ---
Abdominal Pain/Female - HPI Summary HPI Summary: This patient is a 53 year old F presenting to [facility] with a chief complaint of abdominal pain associated with general illness since 4 days ago. She describes the abdominal pain as being on the right side of her abdomen, radiating to the left side. She complains of nausea, vomiting, diarrhea and a piercing headache. She rates the pain in her abdomen as 8/10 in severity. The patient has a Hx of IBS. The patient denies chest pain and shortness of breath, but says she has been coughing. The patient says she has been hot and cold when asked about having fevers or chills. Patient is menopausal. - History of Current Complaint Chief Complaint: EDAbdPain Stated Complaint: ABD PAIN/ Time Seen by Provider: 09/06/18 12:47 Hx Obtained From: Patient Hx Last Menstrual Period: NA Onset/Duration: Gradual Onset, Lasting Days Timing: Constant Severity Initially: Moderate Severity Currently: Moderate Pain Intensity: 8 Pain Scale Used: 0-10 Numeric Location: Diffuse Radiates: No Aggravating Factor(s): Nothing Alleviating Factor(s): Nothing Associated Signs and Symptoms: Positive: Nausea, Vomiting, Diarrhea. Negative: Chest Pain Allergies/Adverse Reactions: Allergies Allergy/AdvReac Type Severity Reaction Status Date / Time azithromycin AdvReac Intermediate Nausea And Verified 09/06/18 11:08 Vomiting Home Medications: Home Medications Buspirone HCl 5 mg PO TID 09/06/18 [History Confirmed 09/06/18] Escitalopram (NF) 10 mg PO DAILY 09/06/18 [History Confirmed 09/06/18] Losartan-Hctz 50-12.5 mg Tab 1 tab PO DAILY 09/06/18 [History Confirmed 09/06/18 ] PMH/Surg Hx/FS Hx/Imm Hx Endocrine/Hematology History: Denies: Hx Diabetes, Hx Thyroid Disease Cardiovascular History: Reports: Hx Hypertension Denies: Hx Hypercholesterolemia, Hx Peripheral Vascular Disease, Other Cardiovascular Problems/Disorders Respiratory History: Reports: Hx Asthma - not formally dx w/ asthma, but uses inhaler, Hx Seasonal Allergies Denies: Hx Chronic Obstructive Pulmonary Disease (COPD) GI History: Reports: Hx Gastroesophageal Reflux Disease Denies: Hx Ulcer, Other GI Disorders Musculoskeletal History: Reports: Other Musculoskeletal History - BACK SPASMS FROM WORK INJURY Denies: Hx Arthritis, Hx Osteoporosis Sensory History: Denies: Hx Cataracts, Hx Contacts or Glasses, Hx Glaucoma, Hx Hearing Aid Opthamlomology History: Denies: Hx Cataracts, Hx Contacts or Glasses, Hx Glaucoma Neurological History: Denies: Hx Headaches, Hx Seizures, Hx Transient Ischemic Attacks (TIA) Psychiatric History: Reports: Other Psychiatric Issues/Disorders - Insomnia Denies: Hx Anxiety, Hx Depression - Surgical History Surgery Procedure, Year, and Place: c-sections x2, , gall bladder removed, , [facility] [place] [facility] [place] Hx Anesthesia Reactions: No Infectious Disease History: No Infectious Disease History: Denies: Hx Clostridium Difficile, Hx Hepatitis, Hx Human Immunodeficiency Virus (HIV), Hx of Known/Suspected MRSA, Hx Shingles, Hx Tuberculosis, History Other Infectious Disease, Traveled Outside the [place] in Last 30 Days - Family History Known Family History: Positive: Cardiac Disease - [place], Hypertension, Other - M - lung cancer metastasized to bone. F - natural causes. - Social History Alcohol Use: Weekly Alcohol Amount: 1-2 PER WEEK Hx Substance Use: No Substance Use Type: Reports: None Hx Tobacco Use: Yes - is in the process of quitting Smoking Status (MU): Light Every Day Tobacco Smoker Type: Cigarettes Amount Used/How Often: varies from day to day Length of Time of Smoking/Using Tobacco: approx 35 + yrs Have You Smoked in the Last Year: Yes Review of Systems Negative: Fever, Chills Positive: Cough. Negative: Shortness Of Breath Positive: Abdominal Pain, Vomiting, Diarrhea, Nausea Positive: Headache All Other Systems Reviewed And Are Negative: Yes Physical Exam - Summary Physical Exam Summary: VITAL SIGNS: Reviewed. GENERAL: Patient is a well-developed and nourished FEMALE who is lying comfortable in the stretcher. Patient is not in any acute respiratory distress. HEAD AND FACE: No signs of trauma. No ecchymosis, hematomas or skull depressions. No sinus tenderness. EYES: PERRLA, EOMI x 2, No injected conjunctiva, no nystagmus. EARS: Hearing grossly intact. Ear canals and tympanic membranes are within normal limits. MOUTH: Oropharynx within normal limits. NECK: Supple, trachea is midline, no adenopathy, no JVD, no carotid bruit, no c- spine tenderness, neck with full ROM. CHEST: Symmetric, no tenderness at palpation LUNGS: Clear to auscultation bilaterally. No wheezing or crackles. CVS: Regular rate and rhythm, S1 and S2 present, no murmurs or gallops appreciated. ABDOMEN: Soft, non-tender. No signs of distention. No rebound no guarding, and no masses palpated. Bowel sounds are normal. Diffuse abdominal tenderness, increased tenderness in right side of abdomen relative to baseline. EXTREMITIES: FROM in all major joints, no edema, no cyanosis or clubbing. NEURO: Alert and oriented x 3. No acute neurological deficits. Speech is normal and follows commands. SKIN: Dry and warm Triage Information Reviewed: Yes Vital Signs On Initial Exam: Initial Vitals Temp Pulse Resp BP Pulse Ox 98 F 83 18 122/79 94 09/06/18 11:08 09/06/18 11:08 09/06/18 11:08 09/06/18 11:08 09/06/18 11:08 Vital Signs Reviewed: Yes Diagnostics - Vital Signs Vital Signs Temp Pulse Resp BP Pulse Ox 09/06/18 11:08 98 F 83 18 122/79 94 - Laboratory Result Diagrams: 09/06/18 13:04 09/06/18 13:04 Lab Statement: Any lab studies that have been ordered have been reviewed, and results considered in the medical decision making process. - CT ABD/PELVIS CT Interpretation: Positive (See Comments) CT Interpretation Completed By: Radiologist - There is suggestion of the hyperenhancing mucosa within the appendix. This measure 7mm in greatest dimension with no air within the lumen. Early appendicitis is not excluded. No free fluid is identified. No other masses or fluid collections identified. The ED Provider has reviewed this report. - EKG 1344 Cardiac Rate: NL - BPM 56 EKG Rhythm: Sinus Rhythm ST Segment: Normal EKG Interpretation: Q Wave in V3 Abdominal Pain Fem Course/Dx - Course Course Of Treatment: This patient is a 53 year old F presenting to [facility] with a chief complaint of abdominal pain associated with general illness since 4 days ago. She describes the abdominal pain as being throughout her abdomen; however the pain does not radiate anywhere else. She complains of nausea, vomiting, diarrhea and a piercing headache. She rates the pain in her abdomen as 8/10 in severity. The patient has a Hx of IBS. The patient denies chest pain and shortness of breath, but says she has been coughing. The patient says she has been hot and cold when asked about having fevers or chills. Patient is menopausal. Blood work without any significant abnormality. Urinalysis negative for UTI. Patient was given 2 doses of morphine and 2 doses of Zofran and the symptoms have resolved. At this point the patient is feeling better. Abdominal pelvic CT IMPRESSION: There is suggestion of the hyperenhancing mucosa within the appendix. This measures 7 mm in greatest dimension with no air within the lumen. Early appendicitis is not excluded. No free fluid is identified. No other masses or fluid collections are identified. At this point I discussed my physical exam findings and test results with Dr. Chen from surgery. He reported there blood work, abdominal pelvic CT and he doesnt see that the patient has an early appendicitis or appendicitis. Dr. Chen recommended for the patient to be discharged home with indications that if the patient continues to have pain, continues to have nausea and vomiting, fevers, the patient shell return immediately to the emergency room and Dr. Chen will be happy to consult for this patient. I discussed all the findings and test results with the patient. Patient was instructed to return to the emergency room immediately if any of the symptoms return or worsens. Plan of care was discussed with the patient and understands and agrees. All questions were answered at patient satisfaction. There were no further complaints or concerns. Lung exam before discharge: CTA B/L. Good air exchange. No wheezing or crackles heard. CVS: S1 and S2 present. No murmurs appreciated. Patient is alert and oriented x 3. Patient is hemodynamically stable. Patient will be discharged home with follow up PCP in the next 2-3 days - Diagnoses Differential Diagnosis: Positive: Appendicitis, Bowel Obstruction, Constipation , Diverticulitis, Ovarian Cyst, Renal Colic, Urinary Tract Infection Provider Diagnoses: Right lateral abdominal pain - Provider Notifications Discussed Care Of Patient With: Bruce Chen - Surgery Time Discussed With Above Provider: 14:47 Instructed by Provider To: Other - Discharge home, recommends patient returns to see him if symptoms change or worsen. Discharge - Sign-Out/Discharge Documenting (check all that apply): Patient Departure - Discharge - Discharge Plan Condition: Stable Disposition: HOME Patient Education Materials: Acute Abdominal Pain (ED) Referrals: Sandip Harvey MD [Primary Care Provider] - - Billing Disposition and Condition Condition: STABLE Disposition: Home - Attestation Statements Document Initiated by Scribe: Yes Documenting Scribe: Jez Landa Provider For Whom Scribe is Documenting (Include Credential): cB Mills MD Scribe Attestation: I, Jez Landa, scribed for Bc Mills MD on 09/07/18 at 0746. Scribe Documentation Reviewed: Yes Provider Attestation: The documentation as recorded by the scribe, Jez Landa accurately reflects the service I personally performed and the decisions made by me, Bc Mills MD
[2018-09-06] MEDS ORDERED: Morphine INJ* 4 MG/ML 1 ML SYRINGE (NEW SYRINGE VERSION) ONE (13:01)
[2018-09-06 13:12] LABS: ABS Basophils 0 10^3/ul (0-0.2); ABS Eosinophils 0.1 10^3/ul (0-0.6); ABS Lymphocytes 2.1 10^3/ul (1.0-4.8); ABS Monocytes 0.2 10^3/ul (0-0.8); ABS Neutrophils 2.3 10^3/ul (1.5-7.7); ABS Nucleated RBC 0 10^3/ul; Eosinophil % 2.3 % (0-6); Hematocrit 40 % (35-47); Hemoglobin 14.2 g/dl (12.0-16.0); Lymphocyte % 44.1 % (25-47); Mean Corpuscular HGB Conc 36 g/dl (31-36); Mean Corpuscular Hemoglobin 34 pg (27-31); Mean Corpuscular Volume 96 fL (80-97); Nucleated Red Blood Cells % 0.1; Platelet Count 408 10^3/ul (150-450); Red Blood Count 4.18 10^6/ul (4.00-5.40); Red Cell Distribution Width 13 % (10.5-15); White Blood Count 4.8 10^3/ul (3.5-10.8)
[2018-09-06 13:29] LABS: EGFR Non-African American 92.1 (>60)
[2018-09-06 13:31] LABS: Urine Appearance Clear; Urine Blood Negative (Negative); Urine Color Straw; Urine Ketones Negative (Negative); Urine Protein Negative (Negative); Urine Specific Gravity 1.002 (1.010-1.030); Urine Urobilinogen Negative (Negative)
[2018-09-06] MEDS ORDERED: Iohexol 300* (CONTRAST) 10 ML SDV IV ONE (13:38)
--- NOTE | 2018-09-06 14:22 | RAD ---
Indication: Abdominal pain. Contrast: Administered 99.0 ml of OMNIPAQUE 300 mg/ml CT of the abdomen and pelvis was performed after oral and IV contrast administration. Coronal and sagittal reconstructed images were obtained. The lung bases demonstrate no pleural fluid, nodules or masses. Heart is of normal size without evidence of pericardial effusion. Liver is normal in size. No focal lesions or intrahepatic ductal dilatation is noted. There is diffuse decrease in density of the liver which may represent mild hepatic steatosis. The spleen is normal in size. No adrenal masses are noted. The kidneys demonstrate symmetric nephrograms without focal lesions. No hydronephrosis is noted. No dilated loops of bowel are noted. CT of the help pelvis demonstrates no retroperitoneal or pelvic lymphadenopathy. Stool is present throughout the colon. The right colon and transverse colon are collapsed. The appendix is visualized and is 7 mm in diameter with suggestion of a hyperenhancing mucosa. I cannot totally exclude early appendicitis. Urinary bladder is otherwise unremarkable. Uterus and ovaries are grossly unremarkable with no adnexal masses. No free fluid is identified. The visualized bony structures are otherwise unremarkable. IMPRESSION: There is suggestion of the hyperenhancing mucosa within the appendix. This measures 7 mm in greatest dimension with no air within the lumen. Early appendicitis is not excluded. No free fluid is identified. No other masses or fluid collections are identified.
[2018-09-06] MEDS ORDERED: Morphine INJ* 4 MG/ML 1 ML SYRINGE (NEW SYRINGE VERSION) IV ONE (14:37)
[2018-09-06 15:45] VITALS: BP 125/82
== END 2018-09-06 15:47 | disposition home or self-care (01) ==
LOC: ED 11:05
DX: R10.84 Generalized abdominal pain (principal); R11.2 Nausea with vomiting, unspecified; R19.7 Diarrhea, unspecified; R51 Headache; Z88.1 Allergy status to other antibiotic agents; Z90.49 Acquired absence of other specified parts of digestive tract; F17.210 Nicotine dependence, cigarettes, uncomplicated
CPT/HCPCS: 36415; 74177; 80053; 81003; 82140; 82550; 83605; 83690; 83735; 83880; 84484; 85025; 86140; 93005; 96374; 96376; 99283; A9270-GY; J2270; Q9967

== ENCOUNTER 2018-11-07 07:48 | Emergency (ER) | payer OTHER ==
[2018-11-07] MEDS ORDERED: Morphine VIAL* 4 MG/ML VIAL (1 ml vial) IV ONE (08:26)
[2018-11-07] MEDS ORDERED: Ondansetron INJ* 2 MG/ML VIAL IV ONE (08:26)
--- NOTE | 2018-11-07 08:33 | ED ---
Abdominal Pain/Female - HPI Summary HPI Summary: Patient is a 53yo F presenting to the ED with bilateral lower quadrant pain worse to the RLQ x 2 days. Associated nausea without vomiting. Endorses + diarrhea and constipation as well. Hx of IBS. Denies F/S/C. Denies hematemesis, melena, UTI symptoms, fatigue. [address] abd/pelvis d/t RLQ pain which shows an increased dilation of the appendix but surgeon stated at the time did not require surgery. After approximately 2 days after d/c she felt improved. Denies recent illness or sick contacts. - History of Current Complaint Chief Complaint: EDAbdPain Stated Complaint: ABD PAIN Time Seen by Provider: 11/07/18 07:58 Hx Obtained From: Patient Hx Last Menstrual Period: NA ?: No Onset/Duration: Sudden Onset Timing: Constant Severity Initially: Moderate Severity Currently: Moderate Pain Intensity: 8 Pain Scale Used: 0-10 Numeric Location: Other - diffuse Radiates: No Character: Cramping Aggravating Factor(s): Nothing Alleviating Factor(s): Nothing Associated Signs and Symptoms: Positive: Negative Allergies/Adverse Reactions: Allergies Allergy/AdvReac Type Severity Reaction Status Date / Time azithromycin AdvReac Intermediate Nausea And Verified 09/06/18 11:08 Vomiting PMH/Surg Hx/FS Hx/Imm Hx Previously Healthy: Yes Endocrine/Hematology History: Denies: Hx Diabetes, Hx Thyroid Disease Cardiovascular History: Reports: Hx Hypertension Denies: Hx Hypercholesterolemia, Hx Peripheral Vascular Disease, Other Cardiovascular Problems/Disorders Respiratory History: Reports: Hx Asthma - not formally dx w/ asthma, but uses inhaler, Hx Seasonal Allergies Denies: Hx Chronic Obstructive Pulmonary Disease (COPD) GI History: Reports: Hx Gastroesophageal Reflux Disease Denies: Hx Ulcer, Other GI Disorders Musculoskeletal History: Reports: Other Musculoskeletal History - BACK SPASMS FROM WORK INJURY Denies: Hx Arthritis, Hx Osteoporosis Sensory History: Denies: Hx Cataracts, Hx Contacts or Glasses, Hx Glaucoma, Hx Hearing Aid Opthamlomology History: Denies: Hx Cataracts, Hx Contacts or Glasses, Hx Glaucoma Neurological History: Denies: Hx Headaches, Hx Seizures, Hx Transient Ischemic Attacks (TIA) Psychiatric History: Reports: Other Psychiatric Issues/Disorders - Insomnia Denies: Hx Anxiety, Hx Depression - Surgical History Surgery Procedure, Year, and Place: c-sections x2, , gall bladder removed, 1980S, [facility] [place] repair, 2012, [facility] [place]2 Hx Anesthesia Reactions: No - Immunization History Hx Pertussis Vaccination: No Immunizations Up to Date: Yes Infectious Disease History: No Infectious Disease History: Denies: Hx Clostridium Difficile, Hx Hepatitis, Hx Human Immunodeficiency Virus (HIV), Hx of Known/Suspected MRSA, Hx Shingles, Hx Tuberculosis, History Other Infectious Disease, Traveled Outside the [place] in Last 30 Days - Family History Known Family History: Positive: Cardiac Disease - [place], Hypertension, Other - M - lung cancer metastasized to bone. F - natural causes. - Social History Occupation: Employed Full-time Lives: With Family Alcohol Use: Weekly Alcohol Amount: 1-2 PER WEEK Hx Substance Use: No Substance Use Type: Reports: None Hx Tobacco Use: Yes - is in the process of quitting Smoking Status (MU): Light Every Day Tobacco Smoker Type: Cigarettes Amount Used/How Often: varies from day to day Length of Time of Smoking/Using Tobacco: approx 35 + yrs Have You Smoked in the Last Year: Yes Review of Systems - ROS Summary Review of Systems Summary: Constitutional: The patient denies fever, MORGAN, sweats or chills. HEENT: Head: The patient denies headaches or dizziness. Eyes: The patient denies diplopia, blurry vision, eye pain, eye discharge, photophobia. Throat: The patient denies sore throats or hoarseness. Cardiovascular: The patient denies chest pain, palpitations, syncope, night cramps, or orthostasis. Respiratory: The patient denies cough, sputum production, hemoptysis, dyspnea, wheezing. Gastrointestinal: The patient endorses diffuse abdominal pain, with nausea, without vomiting. Denies any constipation. Endorses diarrhea. Genitourinary: Patient denies dysuria, hematuria, or pyuria. Patient denies back pain. Denies vaginal discharge, vaginal bleeding. Denies other urinary symptoms. Muscles: The patient denies myalgia, strain or weakness. Joints: The patient denies arthralgia and/or arthritis. Neurologic: The patient denies headache, loss of consciousness, or seizure. Dermatologic: The patient denies hyperpigmentation, rash, or photosensitivity. Constitutional: Negative Negative: Fever, Chills, Fatigue, Skin Diaphoresis Negative: Palpitations, Chest Pain Negative: Shortness Of Breath, Cough Positive: Abdominal Pain, Nausea. Negative: Vomiting, Diarrhea Genitourinary: Negative Positive: no symptoms reported, see HPI Negative: Arthralgia, Myalgia Skin: Negative Positive: Headache All Other Systems Reviewed And Are Negative: Yes Physical Exam - Summary Physical Exam Summary: Appearance: WDW, comfortable, pleasant, alert Skin: Soft dry skin, no lesions. Nailbeds pink with no cyanosis or clubbing. No petechia noted. Eyes: ANNIE, EOMI, Conjunctiva pink with no redness or exudates. Mouth: Dentition without lesions. Moist mucosa Neck: Full range of motion. Palpable thyroid. Trachea at midline. No lymphadenopathy. Pulm: Chest symmetrical expansion. No deformities on posterior chest wall. Lungs clear to auscultation and percussion, without adventitious sounds. CV: No JVD. No deformities on anterior chest wall. Heart sounds. RRR. Normal S1 and single S2. No S3, S4, rubs, or murmurs. Carotids 2+ bilaterally without bruits. . exam not performed GI: Bowel sounds WNL in all 4 quadrants. pain on palpation diffusely throughout. Musculoskeletal: Flexion and extension of neck without limitations. ROM WNL in all extremities. No deformities noted. Pulses +2 bilaterally. Neuro: Motor strength is 5/5 in upper and lower extremities bilaterally. A&OX3 Psych: Logical, coherent Triage Information Reviewed: Yes Vital Signs On Initial Exam: Initial Vitals Temp Pulse Resp BP Pulse Ox 98 F 75 16 148/88 97 11/07/18 07:54 11/07/18 07:54 11/07/18 07:54 11/07/18 07:54 11/07/18 07:54 Vital Signs Reviewed: Yes Appearance: Positive: Well-Appearing, Well-Nourished Skin: Positive: Skin Color Reflects Adequate Perfusion Head/Face: Positive: Normal Head/Face Inspection Eyes: Positive: EOMI, ANNIE, Conjunctiva Clear Neck: Positive: Supple Respiratory/Lung Sounds: Positive: Clear to Auscultation, Breath Sounds Present Cardiovascular: Positive: RRR, Pulses are Symmetrical in both Upper and Lower Extremities Musculoskeletal: Positive: Normal, Strength/ROM Intact Neurological: Positive: Sensory/Motor Intact, Alert, Oriented to Person Place, Time, Speech Normal Psychiatric: Positive: Normal, Affect/Mood Appropriate AVPU Assessment: Alert Diagnostics - Vital Signs Vital Signs Temp Pulse Resp BP Pulse Ox 11/07/18 08:12 69 95 11/07/18 08:10 68 144/85 97 11/07/18 07:54 98 F 75 16 148/88 97 - Laboratory Result Diagrams: 11/07/18 08:49 11/07/18 08:49 Lab Statement: Any lab studies that have been ordered have been reviewed, and results considered in the medical decision making process. Abdominal Pain Fem Course/Dx - Course Course Of Treatment: Patient requesting pain medicatoins on arrival. Appears well. She is given 2mg morphine and 4mg zofran. CT abdomen and pelvis obtained which shows no acute findings. Patient continues to have abdominal pain throughout. She will be diagnosed with IBS pain. I have given her Zofran with good relief. She is requesting a note for work as well. She is requesting opiates. She will not be discharged with pain medication as there is no acute findings and reason for distention of opiates at this time. History of IBS, and states this pain is cramping. - Diagnoses Differential Diagnosis: Positive: Appendicitis, Constipation, Other - IBS, appendicitis Provider Diagnoses: Diffuse abdominal pain, Nausea Discharge - Sign-Out/Discharge Documenting (check all that apply): Patient Departure - Discharge Plan Condition: Stable Disposition: HOME Prescriptions: Ondansetron ODT TAB* [Zofran 4 MG Odt TAB*] 4 mg PO Q6H PRN #12 tab.odt MDD 4 PRN Reason: Nausea Forms: *Work Release Referrals: Sandip Harvey MD [Primary Care Provider] - Additional Instructions: zofran as needed for nausea/vomiting drink plenty of fluids - Billing Disposition and Condition Condition: STABLE Disposition: Home
[2018-11-07 08:56] LABS: ABS Basophils 0.1 10^3/ul (0-0.2); ABS Eosinophils 0.1 10^3/ul (0-0.6); ABS Lymphocytes 1.2 10^3/ul (1.0-4.8); ABS Monocytes 0.3 10^3/ul (0-0.8); ABS Neutrophils 2.9 10^3/ul (1.5-7.7); ABS Nucleated RBC 0 10^3/ul; Eosinophil % 1.9 %; Hematocrit 45 % (35-47); Hemoglobin 15.1 g/dl (12.0-16.0); Lymphocyte % 26.6 %; Mean Corpuscular HGB Conc 34 g/dl (31-36); Mean Corpuscular Hemoglobin 33 pg (27-31); Mean Corpuscular Volume 98 fL (80-97); Nucleated Red Blood Cells % 0.1; Platelet Count 432 10^3/ul (150-450); Red Blood Count 4.54 10^6/ul (4.00-5.40); Red Cell Distribution Width 13 % (10.5-15); White Blood Count 4.5 10^3/ul (3.5-10.8)
[2018-11-07 09:15] LABS: Albumin 4.1 g/dL (3.2-5.2); Albumin/Globulin Ratio 1.3 (1-3); BUN/Creatinine Ratio 18.8 (8-20); C Reactive Protein 1.49 mg/L (<8.01); Calcium 9.4 mg/dL (8.6-10.3); Globulin 3.2 g/dL (2-4); Potassium 4.1 mmol/L (3.5-5.0); Total Bilirubin 0.3 mg/dL (0.2-1.0); Total Protein 7.3 g/dL (6.4-8.9)
[2018-11-07] MEDS ORDERED: Iohexol 300* (CONTRAST) 10 ML SDV IV ONE (10:28)
[2018-11-07 11:44] VITALS: BP 145/82
== END 2018-11-07 11:44 | disposition home or self-care (01) ==
LOC: ED 07:48
DX: R10.84 Generalized abdominal pain (principal); R11.0 Nausea; K76.0 Fatty (change of) liver, not elsewhere classified; Z90.49 Acquired absence of other specified parts of digestive tract; Z88.1 Allergy status to other antibiotic agents; F17.210 Nicotine dependence, cigarettes, uncomplicated
CPT/HCPCS: 36415; 74177; 80053; 83605; 83690; 85025; 86140; 96374; 96375; 99283; J2270; J2405; Q9967

== ENCOUNTER 2019-04-28 07:45 | Emergency (ER) | payer OTHER ==
[2019-04-28] MEDS ORDERED: Lidocaine 2% VISCOUS* 15 ML UDC PO ONE (08:43)
[2019-04-28] MEDS ORDERED: Ondansetron INJ* 2 MG/ML VIAL IV ONE (08:43)
[2019-04-28] MEDS ORDERED: NS 0.9% 1000 ML** 1,000 ML IV ONE (08:43)
[2019-04-28] MEDS ORDERED: Al Hydrox/Mg Hydrox/Simet LIQ* 30 ML UDC PO ONE (08:43)
--- NOTE | 2019-04-28 08:44 | ED ---
Complex/Multi-Sys Presentation - History Of Current Complaint Chief Complaint: EDShortnessOfBreath Time Seen by Provider: 04/28/19 08:29 Hx Obtained From: Patient - Allergies/Home Medications Allergies/Adverse Reactions: Allergies Allergy/AdvReac Type Severity Reaction Status Date / Time azithromycin AdvReac Intermediate Nausea And Verified 04/28/19 07:54 Vomiting Home Medications: Home Medications Losartan TAB* 50 mg PO DAILY 04/28/19 [History Confirmed 04/28/19] Pantoprazole Sodium 40 mg PO DAILY 04/28/19 [History Confirmed 04/28/19] ZyrTEC 10 MG TAB* 1 tab PO DAILY 04/28/19 [History Confirmed 04/28/19] PMH/Surg Hx/FS Hx/Imm Hx Previously Healthy: Yes Endocrine/Hematology History: Denies: Hx Diabetes, Hx Thyroid Disease Cardiovascular History: Reports: Hx Hypertension Denies: Hx Hypercholesterolemia, Hx Peripheral Vascular Disease, Other Cardiovascular Problems/Disorders Respiratory History: Reports: Hx Asthma - not formally dx w/ asthma, but uses inhaler, Hx Seasonal Allergies Denies: Hx Chronic Obstructive Pulmonary Disease (COPD) GI History: Reports: Hx Gastroesophageal Reflux Disease Denies: Hx Ulcer, Other GI Disorders History: Denies: Hx Renal Disease Musculoskeletal History: Reports: Other Musculoskeletal History - BACK SPASMS FROM WORK INJURY Denies: Hx Arthritis, Hx Osteoporosis Sensory History: Denies: Hx Cataracts, Hx Contacts or Glasses, Hx Glaucoma, Hx Hearing Aid Opthamlomology History: Denies: Hx Cataracts, Hx Contacts or Glasses, Hx Glaucoma Neurological History: Denies: Hx Headaches, Hx Seizures, Hx Transient Ischemic Attacks (TIA) Psychiatric History: Reports: Other Psychiatric Issues/Disorders - Insomnia Denies: Hx Anxiety, Hx Depression - Surgical History Surgery Procedure, Year, and Place: c-sections x2, , gall bladder removed, , [facility] [place] hernia repair, 2011, [facility] [place] x2 Hx Anesthesia Reactions: No Infectious Disease History: No Infectious Disease History: Denies: Hx Clostridium Difficile, Hx Hepatitis, Hx Human Immunodeficiency Virus (HIV), Hx of Known/Suspected MRSA, Hx Shingles, Hx Tuberculosis, History Other Infectious Disease, Traveled Outside the [place] in Last 30 Days - Family History Known Family History: Positive: Cardiac Disease - [place], Hypertension, Other - M - lung cancer metastasized to bone. F - natural causes. - Social History Occupation: Employed Full-time Lives: With Family Alcohol Use: Weekly Alcohol Amount: 1-2 PER WEEK Hx Substance Use: No Substance Use Type: Reports: None Hx Tobacco Use: Yes - is in the process of quitting Smoking Status (MU): Light Every Day Tobacco Smoker Type: Cigarettes Amount Used/How Often: varies from day to day Length of Time of Smoking/Using Tobacco: approx 35 + yrs Have You Smoked in the Last Year: Yes Review of Systems Positive: Chills. Negative: Fever Eyes: Negative Positive: Sore Throat Cardiovascular: Negative Negative: Palpitations, Chest Pain Positive: Shortness Of Breath, Cough Positive: Abdominal Pain, Vomiting, Diarrhea, Nausea Genitourinary: Negative Negative: dysuria Musculoskeletal: Negative Skin: Negative Positive: Headache. Negative: Weakness, Paresthesia, Numbness, Syncope All Other Systems Reviewed And Are Negative: Yes Physical Exam Triage Information Reviewed: Yes Vital Signs On Initial Exam: Initial Vitals Temp Pulse Resp BP Pulse Ox 97.9 F 67 16 191/115 96 04/28/19 07:51 04/28/19 07:51 04/28/19 07:51 04/28/19 07:51 04/28/19 07:51 Vital Signs Reviewed: Yes Appearance: Positive: Well-Appearing - Pt. lying in bed in NAD. Family member present. Skin: Positive: Warm, Dry Head/Face: Positive: Normal Head/Face Inspection Eyes: Positive: Normal, EOMI, ANNIE ENT: Positive: Pharynx normal, TMs normal Neck: Positive: Supple Respiratory/Lung Sounds: Positive: Other - Dinimished breath sounds in bases.. Negative: Rales, Rhonchi, Stridor, Tracheal Deviation, Wheezes Cardiovascular: Positive: Normal, RRR Abdomen Description: Positive: Other: - Abd. is soft with diffuse tenderness. No rebound tenderness or guarding. Musculoskeletal: Positive: Normal, Strength/ROM Intact Neurological: Positive: Normal, CN Intact II-III Psychiatric: Positive: Affect/Mood Appropriate Diagnostics - Vital Signs Vital Signs Temp Pulse Resp BP Pulse Ox 04/28/19 07:51 97.9 F 67 16 191/115 96 - Laboratory Result Diagrams: 04/28/19 08:54 04/28/19 08:54 Lab Statement: Any lab studies that have been ordered have been reviewed, and results considered in the medical decision making process. Complex Multi-Symp Course/Dx - Diagnoses Provider Diagnoses: Pneumonia, Gastritis Discharge - Sign-Out/Discharge Documenting (check all that apply): Patient Departure Patient Received Moderate/Deep Sedation with Procedure: No - Discharge Plan Condition: Improved Disposition: HOME Prescriptions: Albuterol HFA INHALER* [Ventolin HFA Inhaler*] 1 - 2 puff INH Q4H PRN #1 mdi PRN Reason: Wheezing DOXYcycline CAP(*) [DOXYcycline 100MG CAP(*)] 100 mg PO BID #20 cap Omeprazole 20 mg PO DAILY #30 capsule. Ondansetron TAB* [Zofran 4 MG Tab*] 4 mg PO Q6H PRN #12 tab PRN Reason: Nausea Patient Education Materials: Gastroenteritis (ED), Bacterial Pneumonia (ED) Forms: *Work Release Referrals: Sandip Harvey MD [Primary Care Provider] - Additional Instructions: Follow up with your PCP for recheck and referral to GI for endoscopy Take medication as directed Increase fluids and rest Return to ER if symptoms change or worsen - Billing Disposition and Condition Condition: IMPROVED Disposition: Home
[2019-04-28 09:05] LABS: ABS Eosinophils 0.1 10^3/ul (0-0.6); ABS Monocytes 0.3 10^3/ul (0-0.8); ABS Neutrophils 2.9 10^3/ul (1.5-7.7); Eosinophil % 1.7 %; Hematocrit 36 % (35-47); Hemoglobin 12.2 g/dL (12.0-16.0); Lymphocyte % 23.2 %; Mean Corpuscular HGB Conc 34 g/dL (31-36); Mean Corpuscular Hemoglobin 34 pg (27-31); Mean Corpuscular Volume 99 fL (80-97); Mean Platelet Volume 6.3 fL (7.4-10.4); Nucleated Red Blood Cells % 0.1; Platelet Count 371 10^3/uL (150-450); Red Blood Count 3.59 10^6 /uL (3.70-4.87); Red Cell Distribution Width 14 % (10.5-15); White Blood Count 4.3 10^3/uL (3.5-10.8)
[2019-04-28 09:24] LABS: Albumin 3.8 g/dL (3.2-5.2); Albumin/Globulin Ratio 1.4 (1-3); BUN/Creatinine Ratio 18.1 (8-20); C Reactive Protein 10.64 mg/L (<8.01); Calcium 9.5 mg/dL (8.6-10.3); EGFR African American 102.5 (>60); EGFR Non-African American 84.7 (>60); Globulin 2.8 g/dL (2-4); Potassium 3.8 mmol/L (3.5-5.0); Total Bilirubin 0.3 mg/dL (0.2-1.0); Total Protein 6.6 g/dL (6.4-8.9)
[2019-04-28] MEDS ORDERED: Iohexol 300* (CONTRAST) 10 ML SDV IV ONE (11:25)
[2019-04-28 12:30] VITALS: BP 192/91
== END 2019-04-28 12:30 | disposition home or self-care (01) ==
LOC: ED 07:45
DX: J18.9 Pneumonia, unspecified organism (principal); K29.70 Gastritis, unspecified, without bleeding; G47.00 Insomnia, unspecified; I10 Essential (primary) hypertension; K21.9 Gastro-esophageal reflux disease without esophagitis; F17.210 Nicotine dependence, cigarettes, uncomplicated; K76.89 Other specified diseases of liver; Z82.49 Family history of ischemic heart disease and other diseases of the circulatory system
CPT/HCPCS: 36415; 71045; 74177; 80053; 83605; 83690; 84484; 85025; 86140; 93005; 96361; 96374; 99283; A9270-GY; J2405; Q9967

== ENCOUNTER 2019-09-26 13:52 | Emergency (ER) | payer OTHER ==
[2019-09-26] MEDS ORDERED: hydrALAZINE IV* 20 MG/ML VIAL IV ONE (15:56)
--- NOTE | 2019-09-26 16:08 | ED ---
Abdominal Pain/Female - HPI Summary HPI Summary: Patient presents with nausea, vomiting and diarrhea that started yesterday. She is not sure why she is having any symptoms however she does report developing a migraine and has been trying her sumatriptan and Prempro clear Mepazine without relief of pain and nausea. Feels like she may have been getting "sick" over the past few days but denies erik sneezing, coughing, ear pain, sore throat, rash, joint aches. She reports she has IBS which swings from constipation to diarrhea quite easily. She concurred active one or the other with OTC meds however has to be careful not to swelling in the other direction. Unsure if symptoms are from IBS at this point in time. Denies consuming new foods, sick contacts, etc. She also reports she's been having migraine headaches on and off over the past couple weeks - has had these for "years". BP is noted to be quite elevated today. Associated symptoms again are headache and bilateral distal finger tingling intermittently but denies change in vision , chest pain, shortness of breath, back pain. Takes losartan 100 mg with potassium daily. Admits she missed her dose yesterday due to nausea and vomiting however she took her dose today without difficulty. Her food and fluid intake have been low which she did tolerate crackers earlier today and denies erik abdominal pain - just has general soreness. When asked about potassium replacement, she states she's not sure why she has potassium deficiency but her labs of been low in the past so PCP added to BP med. Only other medical condition she deals with his asthma which is well controlled. She has not been using her albuterol inhaler recently she hasn't needed it. Smokes cigarettes daily however has not had any in the past day and half due to her symptoms. Does not feel she needs a patch while here. - History of Current Complaint Chief Complaint: EDNauseaVomitDiarrh Stated Complaint: GENERAL ILLNESS PER PT Time Seen by Provider: 09/26/19 14:55 Hx Obtained From: Patient, Family/[employer] - Hx Last Menstrual Period: NA Pain Intensity: 3 Allergies/Adverse Reactions: Allergies Allergy/AdvReac Type Severity Reaction Status Date / Time azithromycin AdvReac Intermediate Nausea And Verified 09/26/19 14:03 Vomiting Home Medications: Home Medications Losartan Potassium 100 mg PO DAILY 09/26/19 [History Confirmed 09/26/19] Pantoprazole Sodium 40 mg PO DAILY 09/26/19 [History Confirmed 09/26/19] Prochlorperazine TAB* [Compazine Tab*] 10 mg PO Q6H PRN 09/26/19 [History Confirmed 09/26/19] SUMAtriptan succinate [Sumatriptan Succinate] 100 mg PO SEE INSTRUCTIONS PRN 01/13 [History Confirmed 09/26/19] PMH/Surg Hx/FS Hx/Imm Hx Previously Healthy: Yes Endocrine/Hematology History: Denies: Hx Diabetes, Hx Thyroid Disease Cardiovascular History: Reports: Hx Hypertension Denies: Hx Hypercholesterolemia, Hx Peripheral Vascular Disease, Other Cardiovascular Problems/Disorders Respiratory History: Reports: Hx Asthma - not formally dx w/ asthma, but uses inhaler, Hx Seasonal Allergies Denies: Hx Chronic Obstructive Pulmonary Disease (COPD) GI History: Reports: Hx Gastroesophageal Reflux Disease Denies: Hx Ulcer, Other GI Disorders History: Denies: Hx Renal Disease Musculoskeletal History: Reports: Other Musculoskeletal History - BACK SPASMS FROM WORK INJURY Denies: Hx Arthritis, Hx Osteoporosis Sensory History: Denies: Hx Cataracts, Hx Contacts or Glasses, Hx Glaucoma, Hx Hearing Aid Opthamlomology History: Denies: Hx Cataracts, Hx Contacts or Glasses, Hx Glaucoma Neurological History: Denies: Hx Headaches, Hx Seizures, Hx Transient Ischemic Attacks (TIA) Psychiatric History: Reports: Other Psychiatric Issues/Disorders - Insomnia Denies: Hx Anxiety, Hx Depression - Surgical History Surgery Procedure, Year, and Place: c-sections x2, , gall bladder removed, , [facility] [place] repair, 2011, [facility] [place] Hx Anesthesia Reactions: No Infectious Disease History: No Infectious Disease History: Denies: Hx Clostridium Difficile, Hx Hepatitis, Hx Human Immunodeficiency Virus (HIV), Hx of Known/Suspected MRSA, Hx Shingles, Hx Tuberculosis, History Other Infectious Disease, Traveled Outside the [place] in Last 30 Days - Family History Known Family History: Positive: Cardiac Disease - [place], Hypertension, Other - M - lung cancer metastasized to bone. F - natural causes. - Social History Alcohol Use: Occasionally Alcohol Amount: 1-2 PER WEEK Hx Substance Use: No Substance Use Type: Reports: None Hx Tobacco Use: Yes - is in the process of quitting Smoking Status (MU): Light Every Day Tobacco Smoker Type: Cigarettes Amount Used/How Often: varies from day to day Length of Time of Smoking/Using Tobacco: approx 35 + yrs Have You Smoked in the Last Year: Yes Review of Systems Positive: Diarrhea, Nausea. Negative: Abdominal Pain, Vomiting Positive: Headache All Other Systems Reviewed And Are Negative: Yes Physical Exam Triage Information Reviewed: Yes Vital Signs On Initial Exam: Initial Vitals Temp Pulse Resp BP Pulse Ox 97.0 F 61 16 215/111 97 09/26/19 14:00 09/26/19 14:00 09/26/19 14:00 09/26/19 14:00 09/26/19 14:00 Vital Signs Reviewed: Yes Appearance: Positive: No Pain Distress - appears mildly fatigued but has clear mentation, good eye contact, organized thoughts, appropriate responses, Well- Nourished Skin: Positive: Warm, Skin Color Reflects Adequate Perfusion, Dry Head/Face: Positive: Normal Head/Face Inspection Eyes: Positive: Normal, EOMI, ANNIE, Conjunctiva Clear ENT: Positive: Hearing grossly normal, Pharynx normal - mucosa somewhat dry, TMs normal, Uvula midline. Negative: Nasal congestion, Tonsillar swelling, Tonsillar exudate Neck: Positive: Supple, Nontender, No Lymphadenopathy Respiratory/Lung Sounds: Positive: Clear to Auscultation, Breath Sounds Present. Negative: Rales, Rhonchi, Wheezes Cardiovascular: Positive: Normal, RRR, Pulses are Symmetrical in both Upper and Lower Extremities, S1, S2. Negative: Murmur, Rub, Leg Edema Left, Leg Edema Right Abdomen Description: Positive: No Organomegaly, Soft, Other: - epigastric and LUQ w/ mild TTP. Negative: Distended Bowel Sounds: Positive: Present Pelvic Exam: Positive: Other - deferred Musculoskeletal: Positive: Normal, Strength/ROM Intact Neurological: Positive: Normal, Sensory/Motor Intact, Alert, Oriented to Person Place, Time, CN Intact II-III Psychiatric: Positive: Normal - Usha Coma Scale Best Eye Response: 4 - Spontaneous Best Motor Response: 6 - Obeys Commands Best Verbal Response: 5 - Oriented Coma Scale Total: 15 Procedures - Sedation Patient Received Moderate/Deep Sedation with Procedure: No Diagnostics - Vital Signs Vital Signs Temp Pulse Resp BP Pulse Ox 09/26/19 14:00 97.0 F 61 16 215/111 97 - Laboratory Result Diagrams: 09/26/19 16:44 09/26/19 16:44 Lab Statement: Any lab studies that have been ordered have been reviewed, and results considered in the medical decision making process. Re-Evaluation - Re-Evaluation First Eval Change: Worse - BP increased from 220 systolic to 235 systolic despite 5mg hydralazine - will repeat at 10mg Second Eval Change: Improved - BP down to 180/80 and pt reports finger tingling and MORGAN improved although MORGAN is still present - continue to deny visual change, chest pain, SOB, abdominal pain, SOB, sweats and no neuro deficits observed Abdominal Pain Fem Course/Dx - Course Course Of Treatment: ECG: sinus nam at 47bpm (this was only time pt's HR drpped into 40's - no blocks on rhythm strip or ECG). Labs: unremarkable except for low mag - replaced IV in the hopes this will also help lower BP. CT brain ordered to r/o hemorrhage - again, no neuro deficit identied however pt's pressure has been veyr elevated w/ active MORGAN sx. Recommend better control of BP. Signed out to Miladis Ray PA-C in improved condition - Diagnoses Provider Diagnoses: Hypertensive urgency, Headache, Vomiting Discharge ED - Sign-Out/Discharge Documenting (check all that apply): Sign-Out Patient Signing out patient TO: Dhara Ray - Discharge Plan Condition: Stable Disposition: HOME Prescriptions: amLODIPine TAB* [Norvasc 5 mg TAB*] 5 mg PO DAILY #14 tab Ondansetron ODT TAB* [Zofran 4 MG Odt TAB*] 4 mg PO Q6H PRN #16 tab.odt PRN Reason: Nausea Patient Education Materials: Hypertension (ED) Forms: *Work Release Referrals: Sandip Harvey MD [Primary Care Provider] - Additional Instructions: take amlodipine daily keep blood pressure log take zofran every 6 hours for nausea take tyenlol or ibuprofen every 6 hours Return to ED if develop any new or worsening symptoms - Billing Disposition and Condition Condition: STABLE Disposition: Home
[2019-09-26] MEDS ORDERED: hydrALAZINE IV* 20 MG/ML VIAL IV SLOW PU ONE (16:34)
[2019-09-26 16:50] LABS: ABS Basophils 0.2 10^3/ul (0-0.2); ABS Monocytes 0.3 10^3/ul (0-0.8); ABS Neutrophils 3.5 10^3/ul (1.5-7.7); Eosinophil % 0.6 %; Hematocrit 43 % (35-47); Lymphocyte % 20.5 %; Mean Corpuscular HGB Conc 35 g/dL (31-36); Mean Corpuscular Hemoglobin 34 pg (27-31); Mean Corpuscular Volume 98 fL (80-97); Nucleated Red Blood Cells % 0.1; Platelet Count 333 10^3/uL (150-450); Red Cell Distribution Width 13 % (10-15)
[2019-09-26 17:01] LABS: Activated Partial Thrombo Time 33.6 seconds (26.0-38.0); INR 0.94 (0.82-1.09)
[2019-09-26 17:09] LABS: Albumin/Globulin Ratio 1.3 (1-3); Calcium 9.4 mg/dL (8.6-10.3); EGFR African American 107.3 (>60); EGFR Non-African American 88.7 (>60); Globulin 3.2 g/dL (2-4); Magnesium 1.6 mg/dL (1.9-2.7); Potassium 3.3 mmol/L (3.5-5.0); Total Bilirubin 0.7 mg/dL (0.2-1.0); Total Protein 7.2 g/dL (6.4-8.9)
[2019-09-26 17:10] LABS: Troponin I 0.03 ng/mL (<0.04)
[2019-09-26] MEDS ORDERED: Magnesium Sulfate 2 GM IV* 2 GM/50 ML BAG IVPB ONE (17:10)
[2019-09-26 17:14] LABS: CKMB ng/mL 0.4 ng/mL (0.6-6.3)
[2019-09-26] MEDS ORDERED: Ondansetron INJ* 2 MG/ML VIAL IV ONE (17:54)
[2019-09-26] MEDS ORDERED: cloNIDine TAB* 0.1 MG PO ONE (18:06)
--- NOTE | 2019-09-26 18:21 | ED ---
Progress - Progress Note Progress Note: patient was signed out by Sharon tadeo pending CT and blood pressure control CT shows: IMPRESSION: No acute intercranial abnormality. on reevaluation patient has normal physical exam. will give migraine cocktail for symptoms. bp is currently 175/95 Re-Evaluation - Re-Evaluation First Eval Change: Worse - BP increased from 220 systolic to 235 systolic despite 5mg hydralazine - will repeat at 10mg Second Eval Change: Improved - BP down to 180/80 and pt reports finger tingling and MORGAN improved although MORGAN is still present - continue to deny visual change, chest pain, SOB, abdominal pain, SOB, sweats and no neuro deficits observed Third Eval Re-Evaluation Time: 18:47 Change: Unchanged Comment: still has headache, states is 7 out ot 10, not worst headache of life, is were normally has headache. has normal neuro exam Fourth Eval Re-Evaluation Time: 19:37 Comment: feeling better. bp is 173. will start on amlodipime. Course/Dx - Course Course Of Treatment: 54 year old female presents with headache, n/v/d for 3 days. will in ED patient had lab work wnl except mg low which was supplement. had CT brain which was negative. was given hydrazaline and clonidine for blood pressure. was given migraine cocktail for headache. headache is improved and blood pressure decreased to 162/85. will start on amlopidime in addition to losartan. told to keep a bp log. gave zofran as needed for nausea. told follow up with primary to have blood pressure rechecked. patient understand and agrees with plan. - Diagnoses Provider Diagnoses: Hypertensive urgency, Headache, Vomiting Discharge ED - Sign-Out/Discharge Documenting (check all that apply): Patient Departure, Receiving Sign-Out Receiving patient FROM: Sharon Tadeo - Discharge Plan Condition: Stable Disposition: HOME Prescriptions: amLODIPine TAB* [Norvasc 5 mg TAB*] 5 mg PO DAILY #14 tab Ondansetron ODT TAB* [Zofran 4 MG Odt TAB*] 4 mg PO Q6H PRN #16 tab.odt PRN Reason: Nausea Patient Education Materials: Hypertension (ED) Forms: *Work Release Referrals: Sandip Harvey MD [Primary Care Provider] - Additional Instructions: take amlodipine daily keep blood pressure log take zofran every 6 hours for nausea take tyenlol or ibuprofen every 6 hours Return to ED if develop any new or worsening symptoms - Billing Disposition and Condition Condition: STABLE Disposition: Home - Attestation Statements Provider Attestation: I have seen the patient with the CLAY and agree with the plan and documentation below except as noted: Please see my prior note, briefly 54 y/o F w headache, blood pressure to decrease 160s after meds, sent home on amlodipine. Head CT negative. Yung Kruger MD
[2019-09-26] MEDS ORDERED: Ketorolac INJ* 30 MG/ML 1 ML VIAL IV PUSH ONE (18:46)
[2019-09-26] MEDS ORDERED: diPHENhydraMINE IV* 50 MG/ML 1 ml VIAL (BENADRYL) SLOW PUSH ONE (18:46)
[2019-09-26] MEDS ORDERED: amLODIPine TAB* 5 MG PO ONE (19:29)
[2019-09-26] MEDS ORDERED: O ndansetron ODT 4MG 5TAB PRPK 4 MG PAK PO ONE (19:29)
[2019-09-26 19:38] VITALS: BP 173/93
== END 2019-09-26 19:37 | disposition home or self-care (01) ==
LOC: ED 13:52
DX: I16.0 Hypertensive urgency (principal); G43.909 Migraine, unspecified, not intractable, without status migrainosus; R11.2 Nausea with vomiting, unspecified; R00.1 Bradycardia, unspecified; K21.9 Gastro-esophageal reflux disease without esophagitis; Z88.1 Allergy status to other antibiotic agents; F17.210 Nicotine dependence, cigarettes, uncomplicated
CPT/HCPCS: 36415; 70450; 71045; 80053; 82150; 82553; 82977; 83605; 83690; 83735; 84484; 85025; 85610; 85730; 93005; 96365; 96375; 99284; A9270-GY; J0360; J1200; J1885; J2405; J3475

== ENCOUNTER 2023-11-07 06:21 | Observation (INO) ==
[2023-11-07] MEDS ORDERED: Lactated Ringers 1000 ml BAG 1,000 ML IV ONE ×2 (06:51→13:19)
[2023-11-07 06:57] LABS: ABS Basophils 0.1 10^3/uL (0.0-0.1); ABS Eosinophils 0.1 10^3/uL (0.0-0.5); ABS Monocytes 0.4 10^3/uL (0.0-0.9); ABS Neutrophils 3.5 10^3/uL (1.5-7.6); Eosinophil % 1.9 %; Hematocrit 41.7 % (35-45); Lymphocyte % 32.7 %; Mean Corpuscular Hemoglobin 37.7 pg (27-33); Mean Corpuscular Hgb Conc 35.9 g/dL (31-36); Mean Platelet Volume 6.5 fL (7.5-11.2); Nucleated Red Blood Cells % 0.1 %/100WBC (0.0-0.8); Platelet Count 341 10^3/uL (150-450); Red Blood Count 3.97 10^6/uL (3.63-4.92); Red Cell Distribution Width 12.8 % (12-17)
[2023-11-07 07:03] LABS: INR 0.96 (0.83-1.13)
[2023-11-07 07:14] LABS: Albumin 4.2 g/dL (3.2-5.2); Albumin/Globulin Ratio 1.4 (1-3); Calcium 9.5 mg/dL (8.6-10.3); Creatinine, Serum 0.75 mg/dL (0.51-0.95); Globulin 2.9 g/dL (2-4); Potassium 3.2 mmol/L (3.5-5.0); Total Bilirubin 0.4 mg/dL (0.2-1.0); Total Protein 7.1 g/dL (6.4-8.9); eGFR CKD-EPI 92.2 (>60)
[2023-11-07 07:33] LABS: Magnesium 1.5 mg/dL (1.9-2.7)
[2023-11-07 08:25] LABS: Urine Appearance Cloudy; Urine Bilirubin Negative (Negative); Urine Blood Negative (Negative); Urine Color Yellow; Urine Glucose Negative (Negative); Urine Ketones Negative (Negative); Urine Nitrite Negative (Negative); Urine Protein Negative (Negative); Urine Specific Gravity 1.009 (1.002-1.030); Urine Urobilinogen Negative (Negative)
[2023-11-07 08:26] LABS: High Sensitivity Troponin 1 Hr < 3 pg/mL (<15)
[2023-11-07] MEDS ORDERED: Magnesium Sulf 4 GM/100 ML IV 4,000 MG/100 ML BAG IVPB ONE (09:31)
[2023-11-07] MEDS ORDERED: Potassium Chlor 20 meq TAB.ER PO ONE (09:32)
[2023-11-07 11:24] LABS: HDL Cholesterol 56.2 mg/dL
[2023-11-08 06:54] LABS: Calcium 8.9 mg/dL (8.6-10.3); Creatinine, Serum 0.63 mg/dL (0.51-0.95); Magnesium 1.7 mg/dL (1.9-2.7); Potassium 3.6 mmol/L (3.5-5.0); eGFR CKD-EPI 102.8 (>60)
[2023-11-08 09:47] LABS: Hematocrit 39.4 % (35-45); Hemoglobin 13.7 g/dL (11.5-14.3); Mean Corpuscular Hemoglobin 36.8 pg (27-33); Mean Corpuscular Hgb Conc 34.9 g/dL (31-36); Mean Corpuscular Volume 105.6 fL (80-97); Mean Platelet Volume 6.9 fL (7.5-11.2); Platelet Count 283 10^3/uL (150-450); Red Blood Count 3.73 10^6/uL (3.63-4.92); Red Cell Distribution Width 12.7 % (12-17)
[2023-11-08] MEDS ORDERED: Regadenoson 0.4 MG/5 ML SYRINGE ONE (09:47)
[2023-11-08] MEDS ORDERED: Aminophylline 25 MG/ML VIAL ONE (09:47)
[2023-11-08 19:39] VITALS: BP 141/70
== END 2023-11-08 16:35 | disposition home or self-care (01) ==
LOC: ED 06:21 → EDHOLD 06:21 → MEDTELE 20:35
PROVIDERS: ADMIT Student in an Organized Health Care Education/Training Program; ATTEND Internal Medicine Hematology & Oncology